=== PATIENT | female | born 1940 | race Caucasian/White ===

== ENCOUNTER 2018-04-14 11:56 | Observation (INO) | payer MEDICARE ==
[2018-04-14] MEDS ORDERED: HYDRALAZINE HCL INJ/PF 20 MG/1 ML SDV IV ONE (12:11)
--- NOTE | 2018-04-14 12:25 | ER Document Report ---
ED Medical Screen (RME) - General Chief Complaint: High Blood Pressure Stated Complaint: BLOOD PRESSURE ISSUES Time Seen by Provider: 04/14/18 12:10 Mode of Arrival: Ambulatory Information source: Patient Notes: 77 yr old female presents with complaints of headache and high blood preessure pt notes she is on 3 different bp meds that she did not take today because she had a coloscopy planned for today I have greeted and performed a rapid initial assessment of this patient. A comprehensive ED assessment and evaluation of the patient, analysis of test results and completion of the medical decision making process will be conducted by additional ED providers. PHYSICAL EXAMINATION: GENERAL: Well-appearing, well-nourished and in no acute distress. hypertensive HEAD: Atraumatic, normocephalic. EYES: Pupils equal round extraocular movements intact, conjunctiva are normal. ENT: Nares patent NECK: Normal range of motion LUNGS: No respiratory distress Musculoskeletal: Normal range of motion NEUROLOGICAL: Normal speech, normal gait. PSYCH: tearful SKIN: Warm, Dry, normal turgor, no rashes or lesions noted. TRAVEL OUTSIDE OF THE [place] IN LAST 30 DAYS: No - Related Data Allergies/Adverse Reactions: midazolam HCl [From Versed] Allergy (Unknown, Verified 04/14/18 09:20) hydrocodone [Hydrocodone] Allergy (Verified 04/14/18 09:20) Pruritis nitrofurantoin [From Macrobid] Allergy (Verified 04/14/18 09:20) Pruritis nitrofurantoin macrocrystalline [From Macrobid] Allergy (Verified 04/14/18 09:20 ) Pruritis Sulfa (Sulfonamide Antibiotics) Adverse Reaction (Verified 04/14/18 09:20) Anxiety tramadol Adverse Reaction (Verified 04/14/18 09:20) Past Medical History - Social History Chew tobacco use (# tins/day): No Frequency of alcohol use: None Drug Abuse: None - Past Medical History Cardiac Medical History: Reports: Hx Hypercholesterolemia, Hx Hypertension Denies: Hx Coronary Artery Disease, Hx Heart Attack Pulmonary Medical History: Denies: Hx Asthma, Hx Bronchitis, Hx COPD, Hx Pneumonia Neurological Medical History: Reports: Hx Cerebrovascular Accident - SHE DOES NOT REMEMBER IT, HAS BEEN TOLD SHE HAS HAD A CVA. Denies: Hx Seizures Renal/ Medical History: Denies: Hx Peritoneal Dialysis GI Medical History: Reports: Hx Gastroesophageal Reflux Disease. Denies: Hx Hepatitis, Hx Hiatal Hernia, Hx Ulcer Musculoskeltal Medical History: Reports Hx Arthritis - GENERALIZED Infectious Medical History: Denies: Hx Hepatitis Past Surgical History: Reports: Hx Adenoidectomy, Hx Hysterectomy, Hx Thyroid Surgery, Hx Tonsillectomy. Denies: Hx Mastectomy, Hx Open Heart Surgery, Hx Pacemaker - Immunizations Hx Diphtheria, Pertussis, Tetanus Vaccination: - UNSURE History of Influenza Vaccine for 07/2017 - 12/2017 Season: No Physical Exam - Vital signs Vitals: Temp Pulse Resp BP Pulse Ox 97.7 F 82 18 217/116 H 96 04/14/18 12:06 04/14/18 12:06 04/14/18 12:06 04/14/18 12:06 04/14/18 12:06 Course - Vital Signs Vital signs: Temp Pulse Resp BP Pulse Ox 97.7 F 82 18 210/140 H 96 04/14/18 12:06 04/14/18 12:06 04/14/18 12:06 04/14/18 12:11 04/14/18 12:06 Doctor's Discharge - Discharge Referrals: ADRIANO SAAVEDRA PA-C [Primary Care Provider] - Follow up as needed
--- NOTE | 2018-04-14 12:55 | RADIOLOGY REPORT (SQ) ---
EXAM DESCRIPTION: CT HEAD WITHOUT COMPLETED DATE/TIME: 04/14/2018 12:37 pm REASON FOR STUDY: headache COMPARISON: 02/05/2014. TECHNIQUE: Axial images acquired through the brain without intravenous contrast. Images reviewed wi th bone, brain and subdural windows. Images stored on PACS. All CT scanners at this facility use dose modulation, iterative reconstruction, and/or weight based d osing when appropriate to reduce radiation dose to as low as reasonably achievable (ALARA). [facility]: Dose Right [facility]: CareDose [facility]: Dose Right [facility]: Teradose 4D [facility]: Smart Revert RADIATION DOSE: CT Rad equipment meets quality standard of care and radiation dose reduction techniq ues were employed. CTDIvol: 53.2 mGy. DLP: 964 mGy-cm. mGy. LIMITATIONS: None. FINDINGS: VENTRICLES: Normal size and contour. CEREBRUM: There is evidence of decreased attenuation periventricular white matter consistent with chr onic white matter change. Focal rounded area decreased attenuation left basal ganglion region again noted consistent with old lacunar infarct. No intracranial hemorrhage. CEREBELLUM: No masses. No hemorrhage. No alteration of density. No evidence for acute infarction. EXTRAAXIAL SPACES: Age related involutional change. ORBITS AND GLOBE: No intra- or extraconal masses. Normal contour of globe without masses. CALVARIUM: Changes of hyperostosis frontalis interna. PARANASAL SINUSES: No fluid or mucosal thickening. SOFT TISSUES: No mass or hematoma. OTHER: No other significant finding. IMPRESSION: CHRONIC WHITE MATTER CHANGES. 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 OTHERWIS E, NO SIGNIFICANT ABNORMALITY SEEN. EVIDENCE OF ACUTE STROKE: NO. COMMENT: Quality ID # [id number]: Final reports with documentation of one or more dose reduction techniques (e.g., Automated exposure control, adjustment of the mA and/or kV according to patient size, use of iterative reconstruction technique) TECHNICAL DOCUMENTATION: JOB ID: [id number] [employer]- All Rights Reserved Reading location - IP/workstation name: [email or web address]
[2018-04-14 13:04] LABS: ABSOLUTE BASOPHILS # (AUTO) 0.1 10^3/uL (0.0-0.2); ABSOLUTE LYMPHOCYTES (AUTO) 1.7 10^3/uL (0.5-4.7); ABSOLUTE MONOCYTES (AUTO) 0.1 10^3/uL (0.1-1.4); ABSOLUTE NEUT (AUTO) 9.8 10^3/uL (1.7-8.2); BASOPHILS % (AUTO) 0.5 % (0-2); EOSINOPHILS % (AUTO) 0.2 % (0-6); HEMOGLOBIN 16.3 g/dL (12.0-15.5); LYMPHOCYTES % (AUTO) 14.8 % (13-45); MEAN CORPUSCULAR HEMOGLOBIN 28.8 pg (27.0-33.4); MEAN CORPUSCULAR HGB CONC 34.7 g/dL (32.0-36.0); MEAN CORPUSCULAR VOLUME 83 fl (80-97); MONOCYTES % (AUTO) 1.2 % (3-13); PLATELET COUNT 183 10^3/uL (150-450); RED BLOOD COUNT 5.67 10^6/uL (3.72-5.28); RED CELL DISTRIBUTION WIDTH 16.2 % (11.5-14.0); SEGMENTED NEUTROPHILS % (AUTO) 83.3 % (42-78); TOTAL CELLS COUNTED % (AUTO) 100 %; WHITE BLOOD COUNT 11.8 10^3/uL (4.0-10.5)
[2018-04-14] MEDS ORDERED: ALPRAZOLAM 0.5 MG TABLET PO ONE (13:12)
[2018-04-14 13:21] LABS: ALANINE AMINOTRANSFERASE 41 U/L (9-52); ALBUMIN 4.9 g/dL (3.5-5.0); ALKALINE PHOSPHATASE 111 U/L (38-126); ANION GAP 13 (5-19); ASPARTATE AMINO TRANSFERASE 43 U/L (14-36); BILIRUBIN,DIRECT 0.4 mg/dL (0.0-0.4); BILIRUBIN,TOTAL 1.3 mg/dL (0.2-1.3); BLOOD UREA NITROGEN 11 mg/dL (7-20); CALCIUM 10.2 mg/dL (8.4-10.2); CARBON DIOXIDE 23 mmol/L (22-30); CHLORIDE 108 mmol/L (98-107); GLUCOSE 150 mg/dL (75-110); POTASSIUM 3.9 mmol/L (3.6-5.0); SODIUM 144.4 mmol/L (137-145); TOTAL PROTEIN 8.4 g/dL (6.3-8.2)
[2018-04-14] MEDS ORDERED: PROCHLORPERAZINE EDISYLATE INJ 10 MG/2 ML VIAL IV ONE (13:58)
[2018-04-14] MEDS ORDERED: NORMAL SALINE 1000 ML 1,000 ML IV ONE (13:58)
[2018-04-14] MEDS ORDERED: HALOPERIDOL LACTATE INJ 5 MG/1 ML VIAL IV ONE (14:01)
[2018-04-14] MEDS ORDERED: DIPHENHYDRAMINE HCL 50 MG/ML VIAL IV ONE (14:01)
[2018-04-14] MEDS ORDERED: KETOROLAC TROMETHAMINE INJ/PF 30 MG/1 ML SDV IV ONE ×2 (15:10→19:00)
[2018-04-14 15:27] LABS: APPEARANCE,URINE CLEAR; BILIRUBIN,URINE NEGATIVE (NEGATIVE); COLOR,URINE YELLOW; GLUCOSE, URINE 50 mg/dL (NEGATIVE); KETONES,URINE TRACE mg/dL (NEGATIVE); LEUKOCYTE ESTERASE,URINE NEGATIVE (NEGATIVE); NITRITE,URINE NEGATIVE (NEGATIVE); PROTEIN,URINE 100 mg/dL (NEGATIVE); URINE SPECIFIC GRAVITY 1.009; UROBILINOGEN,URINE NEGATIVE mg/dL (<2.0)
--- NOTE | 2018-04-14 15:46 | EKG REPORT ---
SEVERITY:- ABNORMAL ECG - SINUS TACHYCARDIA PROBABLE LEFT ATRIAL ABNORMALITY INCOMPLETE LEFT BUNDLE BRANCH BLOCK LVH WITH SECONDARY REPOLARIZATION ABNORMALITY ANTERIOR Q WAVES, POSSIBLY DUE TO LVH : Confirmed by: Jeremy Uriarte 14-Apr-2018 15:46:05
[2018-04-14] MEDS ORDERED: METOPROLOL TARTRATE PF/INJ 5 MG/5 ML SDV IV ONE (17:05)
--- NOTE | 2018-04-14 17:09 | ER Document Report ---
ED Blood Pressure Problem - General Chief Complaint: High Blood Pressure Stated Complaint: BLOOD PRESSURE ISSUES Time Seen by Provider: 04/14/18 12:10 Mode of Arrival: Ambulatory Information source: Patient Notes: Patient is a 77-year-old female with a history of hypertension who presents to the ER today for elevated blood pressure, headache, nausea and vomiting after being at the [facility] to get a colonoscopy performed this morning. She had a headache there and a blood pressure of 217/115. Patient was nauseated there. They sent patient to the emergency department by ambulance. Patient did not take her losartan this morning because of the colonoscopy. Patient states she has been nauseated because of the colon prep and not being able to eat. Patient denies any chest pain, shortness of breath, abdominal pain or diarrhea. Patient denies any history of heart attack or stroke. Patient is anxious at this time and really unable to answer anymore questions. TRAVEL OUTSIDE OF THE [place] IN LAST 30 DAYS: No - Related Data Allergies/Adverse Reactions: midazolam HCl [From Versed] Allergy (Unknown, Verified 04/14/18 09:20) hydrocodone [Hydrocodone] Allergy (Verified 04/14/18 09:20) Pruritis nitrofurantoin [From Macrobid] Allergy (Verified 04/14/18 09:20) Pruritis nitrofurantoin macrocrystalline [From Macrobid] Allergy (Verified 04/14/18 09:20 ) Pruritis Sulfa (Sulfonamide Antibiotics) Adverse Reaction (Verified 04/14/18 09:20) Anxiety tramadol Adverse Reaction (Verified 04/14/18 09:20) Past Medical History - General Information source: Patient - Social History Smoking Status: Current Every Day Smoker Chew tobacco use (# tins/day): No Frequency of alcohol use: None Drug Abuse: None Family History: Reviewed & Not Pertinent Patient has suicidal ideation: No Patient has homicidal ideation: No - Past Medical History Cardiac Medical History: Reports: Hx Hypercholesterolemia, Hx Hypertension Denies: Hx Coronary Artery Disease, Hx Heart Attack Pulmonary Medical History: Denies: Hx Asthma, Hx Bronchitis, Hx COPD, Hx Pneumonia Neurological Medical History: Reports: Hx Cerebrovascular Accident - SHE DOES NOT REMEMBER IT, HAS BEEN TOLD SHE HAS HAD A CVA. 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 Denies: Hx Hepatitis, Hx Hiatal Hernia, Hx Ulcer Musculoskeltal Medical History: Reports Hx Arthritis - GENERALIZED Infectious Medical History: Denies: Hx Hepatitis Past Surgical History: Reports: Hx Adenoidectomy, Hx Cholecystectomy, Hx Hysterectomy, Hx Thyroid Surgery, Hx Tonsillectomy. Denies: Hx Mastectomy, Hx Open Heart Surgery, Hx Pacemaker - Immunizations Hx Diphtheria, Pertussis, Tetanus Vaccination: - UNSURE Hx Pneumococcal Vaccination: 10/24/16 Review of Systems - Review of Systems Constitutional: No symptoms reported EENT: No symptoms reported Cardiovascular: See HPI Respiratory: No symptoms reported Gastrointestinal: See HPI Genitourinary: No symptoms reported Female Genitourinary: No symptoms reported Musculoskeletal: No symptoms reported Skin: No symptoms reported Hematologic/Lymphatic: No symptoms reported Neurological/Psychological: See HPI Physical Exam - Vital signs Vitals: Temp Pulse Resp BP Pulse Ox 97.7 F 82 18 217/116 H 96 04/14/18 12:06 04/14/18 12:06 04/14/18 12:06 04/14/18 12:06 04/14/18 12:06 - Notes Notes: PHYSICAL EXAMINATION: GENERAL: Anxious, tearful, but in no acute distress. HEAD: Atraumatic, normocephalic. EYES: Pupils equal round and reactive to light, extraocular movements intact, sclera anicteric, conjunctiva are normal. ENT: Airway patent NECK: Normal range of motion, supple without lymphadenopathy LUNGS: CTAB and equal. No wheezes rales or rhonchi. HEART: Tachycardic with regular rhythm without murmurs ABDOMEN: Soft, no tenderness. No guarding, no rebound BACK: no vertebral tenderness, normal ROM GI/: no CVA tenderness EXTREMITIES: Normal range of motion, no pitting edema. No cyanosis. NEUROLOGICAL: Cranial nerves grossly intact. Normal sensory/motor exams. PSYCH: Anxious, tearful SKIN: Warm, Dry, normal turgor, no rashes or lesions noted Course - Re-evaluation Re-evalutation: 04/14/18 18:15 Patient is very anxious and tearful in the room with me, asking for her over and over again, unable to really have a conversation with me. One has been gets into the room I did ask if she had any history of anxiety to which he replies "no, not like this, she is usually pretty stable." Patient's blood pressure initially 217/115, did come down after 10 of IV hydralazine ordered in triage to 134/90 at one point, however patient's headache never subsided. CT of the head negative for any acute pathology, cardiac enzymes negative, EKG reveals no acute abnormality or evidence of ischemia. Chest x-ray negative. Other lab work unremarkable today. Patient's blood pressure at this time is still 214/107 and she is still complaining of a headache. This is after lopressor IV as well, haldol, benadryl, xanax. Dr. Del Rosario accepts admission at this time for hypertensive urgency. Wants 2mg of IV ativan stat. 04/14/18 18:38 - Vital Signs Vital signs: Temp Pulse Resp BP Pulse Ox 97.7 F 82 15 214/104 H 94 04/14/18 12:06 04/14/18 12:06 04/14/18 18:01 04/14/18 18:13 04/14/18 18:01 - Laboratory Result Diagrams: 04/14/18 12:40 04/14/18 12:10 Laboratory results interpreted by me: 04/14/18 04/14/18 04/14/18 12:10 12:40 15:00 WBC 11.8 H RBC 5.67 H Hgb 16.3 H RDW 16.2 H Seg Neutrophils % 83.3 H Monocytes % 1.2 L Absolute Neutrophils 9.8 H Chloride 108 H Glucose 150 H AST 43 H Total Protein 8.4 H Urine Protein 100 H Urine Glucose (UA) 50 H Urine Ketones TRACE H Discharge - Discharge Clinical Impression: Hypertensive urgency Condition: Stable Disposition: ADMITTED INPATIENT Admitting Provider: Nakulist Gloria del rosario Unit Admitted: Telemetry
--- NOTE | 2018-04-14 17:49 | RADIOLOGY REPORT (SQ) ---
EXAM DESCRIPTION: CHEST SINGLE VIEW COMPLETED DATE/TIME: 04/14/2018 5:28 pm REASON FOR STUDY: htn crisis COMPARISON: 12/04/2012. EXAM PARAMETERS: NUMBER OF VIEWS: One view. TECHNIQUE: Single frontal radiographic view of the chest acquired. RADIATION DOSE: NA LIMITATIONS: None. FINDINGS: LUNGS AND PLEURA: No opacities, masses or pneumothorax. No pleural effusion. MEDIASTINUM AND HILAR STRUCTURES: No masses. Contour normal. HEART AND VASCULAR STRUCTURES: Heart normal in size. Normal vasculature. BONES: No acute findings. HARDWARE: None in the chest. OTHER: No other significant finding. IMPRESSION: NO ACUTE RADIOGRAPHIC FINDING IN THE CHEST. TECHNICAL DOCUMENTATION: JOB ID: [id number] [employer]- All Rights Reserved Reading location - IP/workstation name: [email or web address]
[2018-04-14 17:53] LABS: CREATINE KINASE MB 0.7 ng/mL (<4.55); TROPONIN I 0.014 ng/mL
[2018-04-14] MEDS ORDERED: LORAZEPAM INJ 2 MG/1 ML VIAL IV ONE ×2 (18:15→22:15)
[2018-04-14] MEDS ORDERED: ONDANSETRON HCL INJ/PF 4 MG/2 ML SDV IV PRN (18:18)
--- NOTE | 2018-04-14 18:31 | PDOC H&P ---
History of Present Illness Admission Date/PCP: ADRIANO SAAVEDRA PA-C History of Present Illness: HOWARD ACUNA is a 77 year old female patient referred from her search engine optimization consultant office after she was found to have hypertensive urgency with blood pressure of 217/113. Patient is scheduled to have colonoscopy today after bowel prep and she has not taken her daily antihypertensive medications. At the ER she was given hydralazine but her blood pressure remains high and patient also complaining of nausea and severe headache. She denies fever, chills, palpitation or diaphoresis. No abdominal pain, diarrhea or urinary complaints. Her CT of the head is negative for acute intracranial process. Past Medical History Cardiac Medical History: Reports: Hyperlipidema, Hypertension Denies: Coronary Artery Disease, Myocardial Infarction Pulmonary Medical History: Denies: Asthma, Bronchitis, Chronic Obstructive Pulmonary Disease (COPD), Pneumonia Neurological Medical History: Denies: Seizures Endocrine Medical History: Reports: Diabetes Mellitus Type 2 - borderline GI Medical History: Reports: Gastroesophageal Reflux Disease Denies: Hepatitis, Hiatal Hernia Musculoskeltal Medical History: Reports: Arthritis - GENERALIZED Hematology: Reports: Anemia Denies: Sickle Cell Disease Past Surgical History Past Surgical History: Reports: Adenoidectomy, Cholecystectomy, Hysterectomy, Tonsillectomy Denies: Amputation, Mastectomy, Pacemaker Social History Smoking Status: Current Every Day Smoker - Advance Directive Resuscitation Status: Full Code Family History Family History: DM, Hypertension Parental Family History Reviewed: Yes Children Family History Reviewed: Yes Sibling(s) Family History Reviewed.: Yes Medication/Allergy Home Medications: Diclofenac Sodium 75 mg PO BID 06/26/13 Gabapentin [Neurontin 300 Mg Capsule] 300 mg PO BID 06/26/13 Levothyroxine Sodium [Synthroid] 137 mcg PO DAILY 06/26/13 Cholecalciferol (Vitamin D3) [Vitamin D3] 1 tab PO DAILY 04/13/18 Clonidine HCl 0.5 tab PO BID 04/13/18 Losartan Potassium 100 mg PO DAILY 04/14/18 Allergies/Adverse Reactions: midazolam HCl [From Versed] Allergy (Unknown, Verified 04/14/18 09:20) hydrocodone [Hydrocodone] Allergy (Verified 04/14/18 09:20) Pruritis nitrofurantoin [From Macrobid] Allergy (Verified 04/14/18 09:20) Pruritis nitrofurantoin macrocrystalline [From Macrobid] Allergy (Verified 04/14/18 09:20 ) Pruritis Sulfa (Sulfonamide Antibiotics) Adverse Reaction (Verified 04/14/18 09:20) Anxiety tramadol Adverse Reaction (Verified 04/14/18 09:20) Review of Systems Constitutional: PRESENT: as per HPI Eyes: PRESENT: as per HPI Breasts: PRESENT: as per HPI Cardiovascular: PRESENT: as per HPI Gastrointestinal: PRESENT: as per HPI Musculoskeletal: PRESENT: as per HPI Neurological: PRESENT: as per HPI Psychiatric: PRESENT: as per HPI Physical Exam Vital Signs: Temp Pulse Resp BP Pulse Ox 97.7 F 82 15 214/104 H 94 04/14/18 12:06 04/14/18 12:06 04/14/18 18:01 04/14/18 18:13 04/14/18 18:01 Intake & Output 04/13/18 04/14/18 04/15/18 06:59 06:59 06:59 Weight 72.1 kg General appearance: PRESENT: mild distress Head exam: PRESENT: atraumatic, normocephalic Eye exam: PRESENT: conjunctiva pink, EOMI, PERRLA. ABSENT: scleral icterus Neck exam: ABSENT: carotid bruit, JVD, lymphadenopathy, thyromegaly Respiratory exam: PRESENT: clear to auscultation oli. ABSENT: rales, rhonchi, wheezes Cardiovascular exam: PRESENT: RRR. ABSENT: diastolic murmur, rubs, systolic murmur GI/Abdominal exam: PRESENT: normal bowel sounds, soft. ABSENT: distended, guarding, mass, organolmegaly, rebound, tenderness Neurological exam: PRESENT: alert, awake, oriented to time, oriented to situation Psychiatric exam: PRESENT: depressed Results Laboratory Results: 04/14/18 12:40 04/14/18 12:10 04/14/18 04/14/18 04/14/18 12:10 12:40 15:00 WBC 11.8 H RBC 5.67 H Hgb 16.3 H Hct 47.0 MCV 83 MCH 28.8 MCHC 34.7 RDW 16.2 H Plt Count 183 Seg Neutrophils % 83.3 H Lymphocytes % 14.8 Monocytes % 1.2 L Eosinophils % 0.2 Basophils % 0.5 Absolute Neutrophils 9.8 H Absolute Lymphocytes 1.7 Absolute Monocytes 0.1 Absolute Eosinophils 0.0 Absolute Basophils 0.1 Sodium 144.4 Potassium 3.9 Chloride 108 H Carbon Dioxide 23 Anion Gap 13 BUN 11 Creatinine 0.81 Est GFR ( Amer) > 60 Est GFR (Non-Af Amer) > 60 Glucose 150 H Calcium 10.2 Total Bilirubin 1.3 AST 43 H ALT 41 Alkaline Phosphatase 111 Total Protein 8.4 H Albumin 4.9 Urine Color YELLOW Urine Appearance CLEAR Urine pH 8.0 Ur Specific [place] 1.009 Urine Protein 100 H Urine Glucose (UA) 50 H Urine Ketones TRACE H Urine Blood NEGATIVE Urine Nitrite NEGATIVE Ur Leukocyte Esterase NEGATIVE Urine WBC (Auto) 0 Urine RBC (Auto) 1 04/14/18 04/14/18 12:40 12:40 Creatine Kinase 42 CK-MB (CK-2) 0.70 Troponin I 0.014 Impressions: Head CT 04/14/18 12:10 IMPRESSION: CHRONIC WHITE MATTER CHANGES. 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 OTHERWISE, NO SIGNIFICANT ABNORMALITY SEEN. EVIDENCE OF ACUTE STROKE: NO. Chest X-Ray 04/14/18 17:07 IMPRESSION: NO ACUTE RADIOGRAPHIC FINDING IN THE CHEST. Assessment & Plan - Diagnosis (1) Hypertensive urgency Is this a current diagnosis for this admission?: Yes Plan: Patient has been started on metoprolol and Procardia. (2) Hyperlipidemia Qualifiers: Hyperlipidemia type: unspecified Qualified Code(s): E78.5 - Hyperlipidemia , unspecified Is this a current diagnosis for this admission?: Yes Plan: Continue her home medication (3) Diabetes mellitus Qualifiers: Diabetes mellitus type: type 2 Is this a current diagnosis for this admission?: Yes Plan: Patient has diet-controlled diabetes mellitus. Will put her on sliding scale. (4) Nonalcoholic steatohepatitis Is this a current diagnosis for this admission?: Yes Plan: Follow-up with her primary search engine optimization consultant.
[2018-04-14] MEDS ORDERED: NIFEDIPINE 30 MG TAB.ER.24 PO ONE (19:00)
[2018-04-14] MEDS ORDERED: METOPROLOL TARTRATE 100 MG TABLET PO ONE (19:00)
[2018-04-14] MEDS ORDERED: ENOXAPARIN SODIUM INJ 40 MG/0.4 ML DISP.SYRIN SUBCUT ONE (19:30)
[2018-04-14] MEDS ORDERED: MORPHINE SULFATE 10 MG/ML INJ IV ONE (22:06)
[2018-04-14] MEDS ORDERED: LORAZEPAM INJ 2 MG/1 ML VIAL ONE (22:07)
[2018-04-14] MEDS ORDERED: ARIPIPRAZOLE 5 MG TABLET PO ONE (22:08)
[2018-04-14] MEDS: METOPROLOL TARTRATE 50 MG TABLET PO SCH (23:16)
[2018-04-14] MEDS ORDERED: CLONIDINE HCL 0.1 MG TABLET PO ONE (23:45)
[2018-04-15] MEDS: NIFEDIPINE 30 MG TAB.ER.24 PO SCH ×2 (06:15→17:23)
[2018-04-15] MEDS: GABAPENTIN 300 MG CAPSULE PO SCH ×3 (06:15→21:51)
[2018-04-15] MEDS: LANSOPRAZOLE 30 MG TAB.RAP.DR PO SCH (06:16)
[2018-04-15 06:49] LABS: ANION GAP 12 (5-19); BLOOD UREA NITROGEN 18 mg/dL (7-20); CALCIUM 9.3 mg/dL (8.4-10.2); CARBON DIOXIDE 26 mmol/L (22-30); CHLORIDE 106 mmol/L (98-107); GLUCOSE 103 mg/dL (75-110); POTASSIUM 3.9 mmol/L (3.6-5.0)
[2018-04-15] MEDS ORDERED: CLONIDINE HCL 0.1 MG TABLET PO SCH (10:00)
[2018-04-15] MEDS: ENOXAPARIN SODIUM INJ 40 MG/0.4 ML DISP.SYRIN SUBCUT SCH (10:06)
[2018-04-15] MEDS: METOPROLOL TARTRATE 50 MG TABLET PO SCH (10:07)
--- NOTE | 2018-04-15 12:49 | PDOC PROGRESS REPORT ---
Subjective Progress Note for:: 04/15/18 Subjective:: This is a 77 years old female patient admitted yesterday for hypertensive urgency with diastolic of 217. Patient got IV hydralazine, p.o. metoprolol and Procardia. Last night patient had an episode of agitation for which she was given benzodiazepine and Haldol. This this afternoon when I examined her patient is somewhat sleepy she is arousable to painful and verbal stimuli but she falls back to sleep. Reason For Visit: HYPERTENSIVE URGENCY,HEADACHE Physical Exam Vital Signs: Temp Pulse Resp BP Pulse Ox 97.3 F 71 14 164/92 H 93 04/15/18 09:00 04/15/18 09:00 04/15/18 09:00 04/15/18 09:00 04/15/18 09:00 Intake & Output 04/14/18 04/15/18 04/16/18 06:59 06:59 06:59 Intake Total 300 Balance 300 Weight 72.2 kg General appearance: PRESENT: no acute distress, well-developed, well-nourished Neck exam: ABSENT: carotid bruit, JVD, lymphadenopathy, thyromegaly Respiratory exam: PRESENT: clear to auscultation oli. ABSENT: rales, rhonchi, wheezes Cardiovascular exam: PRESENT: RRR. ABSENT: diastolic murmur, rubs, systolic murmur GI/Abdominal exam: PRESENT: normal bowel sounds, soft. ABSENT: distended, guarding, mass, organolmegaly, rebound, tenderness Neurological exam: PRESENT: other - Lethargic because of the sedative and antipsychotic medications she was given Results Laboratory Results: 04/15/18 05:39 04/15/18 04/15/18 05:39 05:39 Sodium 144.0 Potassium 3.9 Chloride 106 Carbon Dioxide 26 Anion Gap 12 BUN 18 Creatinine 1.38 H Est GFR ( Amer) 45 L Est GFR (Non-Af Amer) 37 L Glucose 103 Calcium 9.3 TSH 5.86 H Impressions: Head CT 04/14/18 12:10 IMPRESSION: CHRONIC WHITE MATTER CHANGES. 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 OTHERWISE, NO SIGNIFICANT ABNORMALITY SEEN. EVIDENCE OF ACUTE STROKE: NO. Chest X-Ray 04/14/18 17:07 IMPRESSION: NO ACUTE RADIOGRAPHIC FINDING IN THE CHEST. Assessment & Plan - Diagnosis (1) Hypertensive urgency Is this a current diagnosis for this admission?: Yes Plan: I discontinued her clonidine which is a culprit for her rebound hypertension. (2) Hyperlipidemia Qualifiers: Hyperlipidemia type: unspecified Qualified Code(s): E78.5 - Hyperlipidemia , unspecified Is this a current diagnosis for this admission?: Yes Plan: Continue her home medication (3) Diabetes mellitus Qualifiers: Diabetes mellitus type: type 2 Is this a current diagnosis for this admission?: Yes Plan: Patient has diet-controlled diabetes mellitus. Will put her on sliding scale. (4) Nonalcoholic steatohepatitis Is this a current diagnosis for this admission?: Yes Plan: Follow-up with her primary human resources director. (5) Altered mental status Qualifiers: Altered mental status type: somnolence Qualified Code(s): R40.0 - Somnolence Is this a current diagnosis for this admission?: Yes Plan: I will cut back the sedatives that she has been given
[2018-04-15] MEDS ORDERED: NORMAL SALINE 1000 ML 1,000 ML IV ONE (13:00)
[2018-04-16 03:59] VITALS: BP 119/43
[2018-04-16] MEDS: LANSOPRAZOLE 30 MG TAB.RAP.DR PO SCH (05:59)
[2018-04-16] MEDS: GABAPENTIN 300 MG CAPSULE PO SCH (06:00)
[2018-04-16] MEDS: ENOXAPARIN SODIUM INJ 40 MG/0.4 ML DISP.SYRIN SUBCUT SCH (09:49)
--- NOTE | 2018-04-16 11:15 | PDOC DISCHARGE SUMMARY ---
General - Admit/Disc Date/PCP Admission Date/Primary Care Provider: 04/14/18 18:23 ADRIANO SAAVEDRA PA-C Discharge Date: 04/16/18 - Discharge Diagnosis (1) Hypertensive urgency Is this a current diagnosis for this admission?: Yes (2) Hyperlipidemia Is this a current diagnosis for this admission?: Yes (3) Diabetes mellitus Is this a current diagnosis for this admission?: Yes (4) Nonalcoholic steatohepatitis Is this a current diagnosis for this admission?: Yes (5) Altered mental status Is this a current diagnosis for this admission?: Yes - Additional Information Resuscitation Status: Full Code Discharge Diet: Diabetic Discharge Activity: Activity As Tolerated Prescriptions: Nifedipine [Procardia Xl 30 mg Tablet] 30 mg PO DAILY #30 tab.er.24 Trazodone HCl 100 mg PO QHS #30 tablet Home Medications: Diclofenac Sodium [Voltaren] 75 mg PO BIDP PRN 04/14/18 Gabapentin [Neurontin] 600 mg PO Q8 04/14/18 Levothyroxine Sodium [Synthroid 0.1 mg Tablet] 0.1 mg PO Q6AM 04/14/18 Losartan Potassium [Cozaar 100 mg Tablet] 100 mg PO DAILY 04/14/18 Metoprolol Tartrate [Lopressor 25 mg Tablet] 25 mg PO Q12 04/14/18 Nifedipine [Procardia Xl 30 mg Tablet] 30 mg PO DAILY #30 tab.er.24 04/16/18 Trazodone HCl 100 mg PO QHS #30 tablet 04/16/18 History of Present Illness History of Present Illness: HOWARD ACUNA is a 77 year old female 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 Patient is scheduled to have colonoscopy today after bowel prep and she has not taken her daily antihypertensive medications. At the ER she was given hydralazine but her blood pressure remains high and patient also complaining of nausea and severe headache. She denies fever, chills, palpitation or diaphoresis. No abdominal pain, diarrhea or urinary complaints. Her CT of the head is negative for acute intracranial process. Hospital Course Hospital Course: This 77-year-old female patient admitted with severe headache and hypertensive urgency. Patient missed some of her high blood pressure medications including clonidine which resulted in rebound hypertension. At admission her systolic blood pressure was 217. Patient has been managed with IV hydralazine and p.o. metoprolol and Procardia. The first night she admitted patient has an episode of confusion which has resolved. Her blood pressure also dropped to systolics of 80. She has been managed with a bolus of normal saline and we will hold all her antihypertensive medication. This morning when I examined the patient patient is awake alert oriented she is not in pain or any form of distress. Her blood pressure also improved with systolic of 151. Patient is going to be discharged today. I will continue all her home medication except the clonidine and added for her Procardia 30 mg p.o. daily. Physical Exam Vital Signs: Temp Pulse Resp BP Pulse Ox 98.8 F 60 15 119/43 L 93 04/16/18 10:42 04/16/18 10:42 04/16/18 10:42 04/16/18 10:42 04/16/18 10:42 Intake & Output 04/15/18 04/16/18 04/17/18 06:59 06:59 06:59 Intake Total 300 410 Balance 300 410 Weight 72.2 kg 76 kg General appearance: PRESENT: no acute distress, well-developed, well-nourished Head exam: PRESENT: atraumatic, normocephalic Eye exam: PRESENT: conjunctiva pink, EOMI, PERRLA. ABSENT: scleral icterus Ear exam: PRESENT: normal external ear exam Mouth exam: PRESENT: moist, tongue midline Neck exam: ABSENT: carotid bruit, JVD, lymphadenopathy, thyromegaly Respiratory exam: PRESENT: clear to auscultation oli. ABSENT: rales, rhonchi, wheezes Cardiovascular exam: PRESENT: RRR. ABSENT: diastolic murmur, rubs, systolic murmur Pulses: PRESENT: normal dorsalis pedis pul Vascular exam: PRESENT: normal capillary refill GI/Abdominal exam: PRESENT: normal bowel sounds, soft. ABSENT: distended, guarding, mass, organolmegaly, rebound, tenderness Rectal exam: PRESENT: deferred Extremities exam: PRESENT: full ROM. ABSENT: calf tenderness, clubbing, pedal edema Neurological exam: PRESENT: alert, awake, oriented to person, oriented to place , oriented to time, oriented to situation, CN II-XII grossly intact. ABSENT: motor sensory deficit Psychiatric exam: PRESENT: appropriate affect, normal mood. ABSENT: homicidal ideation, suicidal ideation Skin exam: PRESENT: dry, intact, warm. ABSENT: cyanosis, rash Results Laboratory Results: 04/15/18 05:39 Impressions: Head CT 04/14/18 12:10 IMPRESSION: CHRONIC WHITE MATTER CHANGES. 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 OTHERWISE, NO SIGNIFICANT ABNORMALITY SEEN. EVIDENCE OF ACUTE STROKE: NO. Chest X-Ray 04/14/18 17:07 IMPRESSION: NO ACUTE RADIOGRAPHIC FINDING IN THE CHEST. Qualifiers - * PATIENT BEING DISCHARGED WITH ANY OF THE FOLLOWING DIAGNOSIS: No
== END 2018-04-16 10:50 | disposition home or self-care (01) ==
LOC: ER 11:56 → INTOOBSV 18:23 → EH 18:23 → 4S 20:48
PROVIDERS: ADMIT Internal Medicine; ATTEND Internal Medicine
DX: I16.0 Hypertensive urgency (principal); E78.5 Hyperlipidemia, unspecified; E11.9 Type 2 diabetes mellitus without complications; K75.81 Nonalcoholic steatohepatitis (NASH); R40.0 Somnolence; R11.0 Nausea; R51 Headache; F17.200 Nicotine dependence, unspecified, uncomplicated; F32.9 Major depressive disorder, single episode, unspecified; R45.1 Restlessness and agitation; Z79.899 Other long term (current) drug therapy; Z90.49 Acquired absence of other specified parts of digestive tract; Z90.710 Acquired absence of both cervix and uterus; Z82.49 Family history of ischemic heart disease and other diseases of the circulatory system
CPT/HCPCS: 93005; 99285; 96361; 96374; 96375; 36415 ×2; 82553; 82550; 84443 ×2; 85025; 80048; 80053; 81001; 84484; 83036; 71045; 70450; 93010; G0378 ×4; A9270 ×12; J1200; J1630; J0360; J1885; J3490 ×4; J2270; J1650 ×3; J2060; J7030 ×2

== ENCOUNTER → 2018-04-14 | Day surgery (SDC) | payer MEDICARE ==
[~2018-04-14] MED LIST: DEXAMETHASONE SOD PHOSPHATE INJ 4 MG/1 ML VIAL ONE; ONDANSETRON 4 MG TAB.RAPDIS ONE
[2018-04-14 12:02] VITALS: BP 212/106
--- NOTE | 2018-04-14 12:18 | Progress Note ---
Provider Note Provider Note: patient was seen in the OR has elevated BP and not able to lower for procedure Anesthesia recommends rescheduling the procedure patient is at high risk of sedation will not be able to proceed today patient is informed, will reschedule for a different day
== END ==
LOC: OROUT 09:04
PROVIDERS: ATTEND Internal Medicine Gastroenterology
DX: I10 Essential (primary) hypertension (principal); Z53.8 Procedure and treatment not carried out for other reasons
CPT/HCPCS: 36415; 82962; 84132; J1100; A9270; S0119

== ENCOUNTER 2018-07-12 11:14 | Emergency (ER) | payer MEDICARE ==
--- NOTE | 2018-07-12 12:37 | ER Document Report ---
ED GI/ - General Chief Complaint: Urinary Frequency Stated Complaint: UTI SYMPTOMS Time Seen by Provider: 07/12/18 12:30 Notes: Chief complaint: Dysuria History of complain:( obtained from----patient) 77 years old female presents today with dysuria frequency and foul-smelling urine for the last 2-3 weeks. She has previous UTIs. Otherwise no fever chills currently. Denies any nausea vomiting. Mild lower abdominal discomfort. No diarrhea or constipation. Onset: As above Duration: Gradual Severity: Mild to moderate Quality: Burning Context: As above Exacerbating factor and relieving factors: REVIEW OF SYSTEMS: CONSTITUTIONAL : Denies fever, chills, or sweats. Denies recent illness. EENT: Denies eye, ear, throat, or mouth pain or symptoms. Denies nasal or sinus congestion or discharge. Denies throat, tongue, or mouth swelling or difficulty swallowing. CARDIOVASCULAR: Denies chest pain. Denies palpitations or racing or irregular heart beat. Denies ankle edema. RESPIRATORY: Denies cough, cold, or chest congestion. Denies shortness of breath, difficulty breathing, or wheezing. GASTROINTESTINAL: Denies distention. Denies nausea, vomiting, or diarrhea. Denies blood in vomitus, stools, or per rectum. Denies black, tarry stools. Denies constipation. GENITOURINARY: Denies difficulty urinating, painful urination, burning, frequency, blood in urine, or discharge. FEMALE GENITOURINARY: Denies vaginal bleeding, heavy or abnormal periods, irregular periods. Denies vaginal discharge or odor. MUSCULOSKELETAL: Denies back or neck pain or stiffness. Denies joint pain or swelling. SKIN: Denies rash, lesions or sores. HEMATOLOGIC : Denies easy bruising or bleeding. LYMPHATIC: Denies swollen, enlarged glands. NEUROLOGICAL: Denies confusion or altered mental status. Denies passing out or loss of consciousness. Denies dizziness or lightheadedness. Denies headache. Denies weakness or paralysis or loss of use of either side. Denies problems with gait or speech. Denies sensory loss, numbness, or tingling. Denies seizures. PSYCHIATRIC: Denies anxiety or stress. Denies depression, suicidal ideation, or homicidal ideation. ALL OTHER SYSTEMS REVIEWED AND NEGATIVE. PHYSICAL EXAMINATION: GENERAL: Well-appearing, well-nourished and in no acute distress. Obese HEAD: Atraumatic, normocephalic. EYES: Pupils equal round and reactive to light, extraocular movements intact, conjunctiva are normal. ENT: Nares patent, oropharynx clear without exudates. Moist mucous membranes. NECK: Normal range of motion, supple without lymphadenopathy LUNGS: Breath sounds clear to auscultation bilaterally and equal. No wheezes rales or rhonchi. HEART: Regular rate and rhythm without murmurs ABDOMEN: Soft, nontender, nondistended abdomen. No guarding, no rebound. No masses appreciated. Examination of genitals-deferred Musculoskeletal: Normal range of motion, no pitting or edema. No cyanosis. NEUROLOGICAL: Cranial nerves grossly intact. Normal speech, normal gait. Normal sensory, motor exams PSYCH: Normal mood, normal affect. SKIN: Warm, Dry, normal turgor, no rashes or lesions noted. Dictation was performed using [employer] voice recognition software TRAVEL OUTSIDE OF THE [place] IN LAST 30 DAYS: No - Related Data Allergies/Adverse Reactions: midazolam HCl [From Versed] Allergy (Unknown, Verified 04/14/18 09:20) hydrocodone [Hydrocodone] Allergy (Verified 04/14/18 09:20) Pruritis nitrofurantoin [From Macrobid] Allergy (Verified 04/14/18 09:20) Pruritis nitrofurantoin macrocrystalline [From Macrobid] Allergy (Verified 04/14/18 09:20 ) Pruritis Sulfa (Sulfonamide Antibiotics) Adverse Reaction (Verified 04/14/18 09:20) Anxiety tramadol Adverse Reaction (Verified 04/14/18 09:20) Past Medical History - Social History Smoking Status: Current Some Day Smoker Chew tobacco use (# tins/day): No Frequency of alcohol use: None Drug Abuse: None Lives with: Family Family History: Reviewed & Not Pertinent Patient has suicidal ideation: No Patient has homicidal ideation: No - Past Medical History Cardiac Medical History: Reports: Hx Hypercholesterolemia, Hx Hypertension Denies: Hx Coronary Artery Disease, Hx Heart Attack Pulmonary Medical History: Denies: Hx Asthma, Hx Bronchitis, Hx COPD, Hx Pneumonia Neurological Medical History: Reports: Hx Cerebrovascular Accident - SHE DOES NOT REMEMBER IT, HAS BEEN TOLD SHE HAS HAD A CVA. 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 Denies: Hx Hepatitis, Hx Hiatal Hernia, Hx Ulcer Musculoskeletal Medical History: Reports Hx Arthritis - GENERALIZED Infectious Medical History: Denies: Hx Hepatitis Past Surgical History: Reports: Hx Adenoidectomy, Hx Cholecystectomy, Hx Hysterectomy, Hx Thyroid Surgery, Hx Tonsillectomy. Denies: Hx Mastectomy, Hx Open Heart Surgery, Hx Pacemaker - Immunizations Hx Diphtheria, Pertussis, Tetanus Vaccination: - UNSURE Hx Pneumococcal Vaccination: 10/24/16 Review of Systems - Review of Systems Notes: Dictated Physical Exam - Vital signs Vitals: Temp Pulse Resp BP Pulse Ox 98.3 F 84 14 183/86 H 96 07/12/18 11:21 07/12/18 11:21 07/12/18 11:21 07/12/18 11:21 07/12/18 11:21 - Notes Notes: Dictated Course - Vital Signs Vital signs: Temp Pulse Resp BP Pulse Ox 98.3 F 84 14 183/86 H 96 07/12/18 11:21 07/12/18 11:21 07/12/18 11:21 07/12/18 11:21 07/12/18 11:21 - Laboratory Laboratory results interpreted by me: 07/12/18 12:55 Urine Protein 30 H Urine Nitrite POSITIVE H Urine Bilirubin SMALL H Urine Urobilinogen 4.0 H Ur Leukocyte Esterase SMALL H Discharge - Discharge Clinical Impression: UTI (urinary tract infection) Qualifiers: Urinary tract infection type: acute cystitis Hematuria presence: without hematuria Qualified Code(s): N30.00 - Acute cystitis without hematuria Condition: Fair Disposition: HOME, SELF-CARE Instructions: Urinary Tract Infection ([facility]) Prescriptions: Ciprofloxacin HCl [Cipro 500 mg Tablet] 500 mg PO BID #20 tablet Levofloxacin [Levaquin 500 mg Tablet] 500 mg PO DAILY #10 tablet Referrals: ADRIANO SAAVEDRA PA-C [Primary Care Provider] - Follow up as needed
[2018-07-12 13:13] LABS: APPEARANCE,URINE CLOUDY; BILIRUBIN,URINE SMALL (NEGATIVE); COLOR,URINE YELLOW; GLUCOSE, URINE NEGATIVE (NEGATIVE); KETONES,URINE NEGATIVE (NEGATIVE); LEUKOCYTE ESTERASE,URINE SMALL (NEGATIVE); NITRITE,URINE POSITIVE (NEGATIVE); PROTEIN,URINE 30 mg/dL (NEGATIVE); URINE SPECIFIC GRAVITY 1.019
[2018-07-12] MEDS ORDERED: CIPROFLOXACIN HCL 500 MG TABLET PO ONE (13:58)
[2018-07-12] MEDS ORDERED: CLONIDINE HCL 0.2 MG TABLET PO ONE (14:20)
[2018-07-12 15:33] VITALS: BP 155/87
== END 2018-07-12 15:33 | disposition home or self-care (01) ==
LOC: ER 11:14
DX: N30.00 Acute cystitis without hematuria (principal); R30.0 Dysuria; F17.210 Nicotine dependence, cigarettes, uncomplicated
CPT/HCPCS: 99283; 81001; A9270 ×2

== ENCOUNTER → 2019-01-23 | Outpatient (CLI) | payer MEDICARE ==
--- NOTE | 2019-01-23 12:36 | RADIOLOGY REPORT (SQ) ---
EXAM DESCRIPTION: CHEST PA/LATERAL COMPLETED DATE/TIME: 01/23/2019 11:45 am REASON FOR STUDY: SHORTNESS OF BREATH COMPARISON: 12/04/2012 EXAM PARAMETERS: NUMBER OF VIEWS: two views TECHNIQUE: Digital Frontal and Lateral radiographic views of the chest acquired. RADIATION DOSE: NA LIMITATIONS: none FINDINGS: LUNGS AND PLEURA: Chronic mild prominence of the interstitial markings in the lungs. No acute pulmonary consolidation. No pneumothorax or pleural effusion. MEDIASTINUM AND HILAR STRUCTURES: No masses or contour abnormalities. HEART AND VASCULAR STRUCTURES: Cardiomegaly, new finding. No evidence for failure. BONES: No acute findings. HARDWARE: None in the chest. OTHER: No other significant finding. IMPRESSION: 1. No acute pulmonary findings. 2. Cardiomegaly, new finding since the prior examination dated 12/04/2012. No evidence for failure. C orrelation suggested. TECHNICAL DOCUMENTATION: JOB ID: [id number] [employer]- All Rights Reserved Reading location - IP/workstation name: [email or web address]
== END ==
LOC: OD 11:25
PROVIDERS: ATTEND Physician Assistant Medical
DX: I51.7 Cardiomegaly (principal); R06.02 Shortness of breath
CPT/HCPCS: 71046

== ENCOUNTER 2019-06-24 14:04 | Emergency (ER) | payer MEDICARE ==
[2019-06-24] MEDS ORDERED: ONDANSETRON HCL INJ/PF 4 MG/2 ML SDV IV ONE (15:22)
[2019-06-24] MEDS ORDERED: NORMAL SALINE 1000 ML 1,000 ML IV ONE (15:22)
--- NOTE | 2019-06-24 15:24 | ER Document Report ---
ED Medical Screen (RME) - General Chief Complaint: Abdominal Pain Stated Complaint: ABDOMINAL PAIN Time Seen by Provider: 06/24/19 15:16 Primary Care Provider: ADRIANO SAAVEDRA PA-C [Primary Care Provider] - Follow up as needed TRAVEL OUTSIDE OF THE [place] IN LAST 30 DAYS: No - HPI Notes: 06/24/19 15:22 Patient is a 78-year-old female with a history of hypertension (see no med ications today), hyperlipidemia, COPD, borderline type 2 diabetes who presents complaining of mid to upper abdominal discomfort as well as an intermittent sharp pain to her right lower abdomen. She has had a history of cholecystectomy. Pain began 2 days ago. She has associated nausea and watery diarrhea without melena or hematochezia. Denies ARRIAGA, fever, neck pain, URI, CP, SOB, dysuria, back pain, or rash. I have treated and performed a rapid initial assessment of this patient. A comprehensive ED assessment and evaluation of the patient, analysis of test results and completion of medical decision making process will be conducted by additional ED providers. PHYSICAL EXAMINATION: GENERAL: Well-appearing, well-nourished and in no acute distress. A&Ox4. Answers questions appropriately. LUNGS: Breath sounds clear to auscultation bilaterally and equal. No wheezes rales or rhonchi. HEART: Regular rate and rhythm ABDOMEN: Soft, nondistended abdomen. No guarding, no rebound. Normal bowel sounds present. No CVA tenderness bilaterally. + mild mid/upper and rlq abd tenderness (cannot elicit thorough abd exam w/o bed, however). - Related Data Allergies/Adverse Reactions: midazolam HCl [From Versed] Allergy (Unknown, Verified 06/24/19 14:05) hydrocodone [Hydrocodone] Allergy (Verified 06/24/19 14:05) Pruritis nitrofurantoin [From Macrobid] Allergy (Verified 06/24/19 14:05) Pruritis nitrofurantoin macrocrystalline [From Macrobid] Allergy (Verified 06/24/19 14:05) Pruritis Sulfa (Sulfonamide Antibiotics) Adverse Reaction (Verified 06/24/19 14:05) Anxiety tramadol Adverse Reaction (Verified 06/24/19 14:05) Past Medical History - Past Medical History Cardiac Medical History: Reports: Hx Hypercholesterolemia, Hx Hypertension Denies: Hx Coronary Artery Disease, Hx Heart Attack Pulmonary Medical History: Denies: Hx Asthma, Hx Bronchitis, Hx COPD, Hx Pneumonia Neurological Medical History: Reports: Hx Cerebrovascular Accident - SHE DOES NOT REMEMBER IT, HAS BEEN TOLD SHE HAS HAD A CVA. 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 Denies: Hx Hepatitis, Hx Hiatal Hernia, Hx Ulcer Musculoskeltal Medical History: Reports Hx Arthritis - GENERALIZED Infectious Medical History: Denies: Hx Hepatitis Past Surgical History: Reports: Hx Adenoidectomy, Hx Cholecystectomy, Hx Hysterectomy, Hx Thyroid Surgery, Hx Tonsillectomy. Denies: Hx Mastectomy, Hx Open Heart Surgery, Hx Pacemaker - Immunizations Hx Diphtheria, Pertussis, Tetanus Vaccination: - UNSURE History of Influenza Vaccine for 07/2017 - 12/2017 Season: No Physical Exam - Vital signs Vitals: Temp Pulse Resp BP Pulse Ox 98.3 F 81 18 156/106 H 97 06/24/19 14:25 06/24/19 14:25 06/24/19 14:25 06/24/19 14:25 06/24/19 14:25 Course - Vital Signs Vital signs: Temp Pulse Resp BP Pulse Ox 98.3 F 81 18 156/106 H 97 06/24/19 14:25 06/24/19 14:25 06/24/19 14:25 06/24/19 14:25 06/24/19 14:25 Doctor's Discharge - Discharge Referrals: ADRIANO SAAVEDRA PA-C [Primary Care Provider] - Follow up as needed
[2019-06-24 16:09] LABS: ABSOLUTE EOSINOPHILS # (AUTO) 0.1 10^3/uL (0.0-0.6); ABSOLUTE LYMPHOCYTES (AUTO) 2.6 10^3/uL (0.5-4.7); ABSOLUTE MONOCYTES (AUTO) 0.7 10^3/uL (0.1-1.4); ABSOLUTE NEUT (AUTO) 6.7 10^3/uL (1.7-8.2); BASOPHILS % (AUTO) 0.5 % (0-2); EOSINOPHILS % (AUTO) 1.4 % (0-6); HEMATOCRIT 48.1 % (36.0-47.0); HEMOGLOBIN 16.6 g/dL (12.0-15.5); LYMPHOCYTES % (AUTO) 25.3 % (13-45); MEAN CORPUSCULAR HEMOGLOBIN 28.6 pg (27.0-33.4); MEAN CORPUSCULAR HGB CONC 34.6 g/dL (32.0-36.0); MEAN CORPUSCULAR VOLUME 83 fl (80-97); MONOCYTES % (AUTO) 6.9 % (3-13); PLATELET COUNT 179 10^3/uL (150-450); RED BLOOD COUNT 5.82 10^6/uL (3.72-5.28); RED CELL DISTRIBUTION WIDTH 16.5 % (11.5-14.0); SEGMENTED NEUTROPHILS % (AUTO) 65.9 % (42-78); TOTAL CELLS COUNTED % (AUTO) 100 %; WHITE BLOOD COUNT 10.2 10^3/uL (4.0-10.5)
[2019-06-24 16:26] LABS: ALBUMIN 5.1 g/dL (3.5-5.0); ALKALINE PHOSPHATASE 126 U/L (38-126); ANION GAP 14 (5-19); ASPARTATE AMINO TRANSFERASE 44 U/L (14-36); BILIRUBIN,DIRECT 0.5 mg/dL (0.0-0.4); BILIRUBIN,TOTAL 1.7 mg/dL (0.2-1.3); BLOOD UREA NITROGEN 17 mg/dL (7-20); CALCIUM 10.5 mg/dL (8.4-10.2); CARBON DIOXIDE 30 mmol/L (22-30); CHLORIDE 99 mmol/L (98-107); GLUCOSE 104 mg/dL (75-110); POTASSIUM 3.4 mmol/L (3.6-5.0); TOTAL PROTEIN 8.5 g/dL (6.3-8.2)
--- NOTE | 2019-06-24 17:25 | RADIOLOGY REPORT (SQ) ---
EXAM DESCRIPTION: CT ABD/PELVIS WITH IV ONLY COMPLETED DATE/TIME: 06/24/2019 5:11 pm REASON FOR STUDY: abd pain, n/d COMPARISON: None. TECHNIQUE: CT scan of the abdomen and pelvis performed using helical scanning technique with dynamic intravenous contrast injection. No oral contrast. Images reviewed with lung, soft tissue, and bone w indows. Reconstructed coronal and sagittal MPR images reviewed. Delayed images for evaluation of the urinary system also acquired. All images stored on PACS. All CT scanners at this facility use dose modulation, iterative reconstruction, and/or weight based d osing when appropriate to reduce radiation dose to as low as reasonably achievable (ALARA). [facility]: Dose Right [facility]: CareDose [facility]: Dose Right [facility]: Teradose 4D [facility]: TokBox CONTRAST TYPE AND DOSE: contrast/concentration: Isovue mg/ml; Total Contrast Delivered: 83.0 ml; To daya Saline Delivered: 69.0 ml RENAL FUNCTION: GFR > 60. RADIATION DOSE: CT Rad equipment meets quality standard of care and radiation dose reduction techniq ues were employed. CTDIvol: NaN - NaN mGy. DLP: 0 mGy-cm.. LIMITATIONS: None. FINDINGS: LOWER CHEST: No significant findings. LIVER: Normal size. Nodular contour of the liver. No enhancing masses. No dilated ducts. SPLEEN: Normal size. No focal lesions. PANCREAS: No masses identified. No significant calcifications. No adjacent inflammation or peripancre atic fluid collections. Pancreatic duct not dilated. GALLBLADDER: Surgically absent. ADRENAL GLANDS: No significant masses. RIGHT KIDNEY AND URETER: No cysts identified. No solid masses identified. No calcified stones. No hyd ronephrosis or hydroureter. LEFT KIDNEY AND URETER: Small cysts identified. No solid masses identified. No calcified stones. No h ydronephrosis or hydroureter. AORTA AND VESSELS: No aneurysm. No dissection. Renal arteries, SMA, celiac without significant stenos is. RETROPERITONEUM: No bulky retroperitoneal adenopathy. BOWEL AND PERITONEAL CAVITY: No obstruction or inflammatory changes. . Diverticulosis. Multiple carranza rgical changes in the right mid abdomen No free fluid. APPENDIX: Normal. PELVIS: Prior hysterectomy. No free fluid. Unremarkable bladder. ABDOMINAL WALL: No masses. No hernias. BONES: No acute findings. OTHER: No other significant finding. IMPRESSION: NO ACUTE FINDINGS IN THE ABDOMEN OR PELVIS ON CT SCAN WITH IV CONTRAST. TECHNICAL DOCUMENTATION: JOB ID: [id number] Quality ID # [id number]: Final reports with documentation of one or more dose reduction techniques (e.g., Au tomated exposure control, adjustment of the mA and/or kV according to patient size, use of iterative reconstruction technique) 2010 [employer]- All Rights Reserved Reading location - IP/workstation name: [email or web address]
[2019-06-24 17:58] LABS: APPEARANCE,URINE SLIGHTLY-CLOUDY; BILIRUBIN,URINE NEGATIVE (NEGATIVE); COLOR,URINE YELLOW; GLUCOSE, URINE NEGATIVE (NEGATIVE); KETONES,URINE TRACE mg/dL (NEGATIVE); LEUKOCYTE ESTERASE,URINE LARGE (NEGATIVE); NITRITE,URINE NEGATIVE (NEGATIVE); PROTEIN,URINE 30 mg/dL (NEGATIVE); URINE SPECIFIC GRAVITY 1.038; UROBILINOGEN,URINE NEGATIVE mg/dL (<2.0)
[2019-06-24] MEDS ORDERED: CEFTRIAXONE 1 GM/D5W RTU 1 GM/50 ML RTUPB IV ONE (18:27)
[2019-06-24] MEDS ORDERED: ONDANSETRON ODT 4 MG TAB (6 TAB/ER DISP) PO PRN (19:08)
--- NOTE | 2019-06-24 19:08 | ER Document Report ---
ED General - General Chief Complaint: Abdominal Pain Stated Complaint: ABDOMINAL PAIN Time Seen by Provider: 06/24/19 15:16 Primary Care Provider: ADRIANO SAAVEDRA PA-C [Primary Care Provider] - Follow up as needed TRAVEL OUTSIDE OF THE [place] IN LAST 30 DAYS: No - HPI Notes: Patient is a 78-year-old female who presents to the emergency department for evaluation. She has a chronic sharp right lower quadrant pain, but over the last 24 hours it is become unbearable. She states she is felt chilled. No isrrael fevers. She is had some nausea and diminished appetite but no emesis. She had a few episodes of diarrhea, but she believes that was likely yesterday. She denies any urinary symptoms at this time. She just feels weak and poorly all over. She is taking her regular medications without difficulty. - Related Data Allergies/Adverse Reactions: midazolam HCl [From Versed] Allergy (Unknown, Verified 06/24/19 14:05) hydrocodone [Hydrocodone] Allergy (Verified 06/24/19 14:05) Pruritis nitrofurantoin [From Macrobid] Allergy (Verified 06/24/19 14:05) Pruritis nitrofurantoin macrocrystalline [From Macrobid] Allergy (Verified 06/24/19 14:05) Pruritis Sulfa (Sulfonamide Antibiotics) Adverse Reaction (Verified 06/24/19 14:05) Anxiety tramadol Adverse Reaction (Verified 06/24/19 14:05) Past Medical History - General Information source: Patient - Social History Smoking Status: Former Smoker Chew tobacco use (# tins/day): No Frequency of alcohol use: Rare Drug Abuse: None Family History: Reviewed & Not Pertinent Patient has suicidal ideation: No Patient has homicidal ideation: No - Past Medical History Cardiac Medical History: Reports: Hx Hypercholesterolemia, Hx Hypertension Denies: Hx Coronary Artery Disease, Hx Heart Attack Pulmonary Medical History: Denies: Hx Asthma, Hx Bronchitis, Hx COPD, Hx Pneumonia Neurological Medical History: Reports: Hx Cerebrovascular Accident - SHE DOES NOT REMEMBER IT, HAS BEEN TOLD SHE HAS HAD A CVA. 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 Denies: Hx Hepatitis, Hx Hiatal Hernia, Hx Ulcer Musculoskeletal Medical History: Reports Hx Arthritis - GENERALIZED Infectious Medical History: Denies: Hx Hepatitis Past Surgical History: Reports: Hx Adenoidectomy, Hx Cholecystectomy, Hx Hysterectomy, Hx Thyroid Surgery, Hx Tonsillectomy. Denies: Hx Mastectomy, Hx Open Heart Surgery, Hx Pacemaker - Immunizations Hx Diphtheria, Pertussis, Tetanus Vaccination: - UNSURE Hx Pneumococcal Vaccination: 10/24/16 Review of Systems - Review of Systems Constitutional: See HPI EENT: No symptoms reported Cardiovascular: No symptoms reported Respiratory: No symptoms reported Gastrointestinal: See HPI Genitourinary: No symptoms reported Musculoskeletal: No symptoms reported Skin: No symptoms reported Neurological/Psychological: No symptoms reported Physical Exam - Vital signs Vitals: Temp Pulse Resp BP Pulse Ox 98.3 F 81 18 156/106 H 97 06/24/19 14:25 06/24/19 14:25 06/24/19 14:25 06/24/19 14:25 06/24/19 14:25 - Notes Notes: Vital signs reviewed, please refer to chart. Head is normocephalic, atraumatic. Pupils equal round, reactive to light. Neck is supple without meningismus. Heart is regular rate and rhythm. Lungs are clear to auscultation bilaterally. Abdomen is soft, minimally tender in the right lower quadrant, normoactive bowel sounds throughout. Extremities without cyanosis, clubbing. Posterior calves are nontender. Peripheral pulses are equal. Skin is warm and dry. Patient is awake, alert, neurological exam is nonfocal. Course - Re-evaluation Re-evalutation: 06/24/19 19:07 Patient presents emergency department for evaluation. Laboratory investigations and imaging are ordered as through triage. She is given IV fluids and Zofran. She is feeling significantly improved. Laboratory investigations revealed only a UTI. She does not have a significant leukocytosis. Her CT scan is unremarkable. Serial abdominal exams are minimally tender. Patient is given an IV dose of Rocephin given her age and other comorbidities. I will send her home with some oral Zofran. I will send her home with a prescription for Keflex. She is to follow-up with her primary care physician this week. Return to the ED with worsening or new concerning symptoms of any sort. - Vital Signs Vital signs: Temp Pulse Resp BP Pulse Ox 98.3 F 81 22 H 156/106 H 99 06/24/19 14:25 06/24/19 14:25 06/24/19 18:00 06/24/19 14:25 06/24/19 18:00 - Laboratory Result Diagrams: 06/24/19 15:40 06/24/19 15:40 Laboratory results interpreted by me: 06/24/19 06/24/19 06/24/19 15:40 15:40 17:33 RBC 5.82 H Hgb 16.6 H Hct 48.1 H RDW 16.5 H Potassium 3.4 L Est GFR ( Amer) 57 L Est GFR (MDRD) Non-Af 47 L Calcium 10.5 H Total Bilirubin 1.7 H Direct Bilirubin 0.5 H AST 44 H Total Protein 8.5 H Albumin 5.1 H Urine Protein 30 H Urine Ketones TRACE H Urine Blood SMALL H Ur Leukocyte Esterase LARGE H - Diagnostic Test Radiology reviewed: Reports reviewed Radiology results interpreted by me: 06/24/19 19:08 Abdomen/Pelvis CT 06/24/19 15:21 IMPRESSION: NO ACUTE FINDINGS IN THE ABDOMEN OR PELVIS ON CT SCAN WITH IV CONTRAST. Discharge - Discharge Clinical Impression: Urinary tract infection Condition: Stable Disposition: HOME, SELF-CARE Instructions: Abdominal Pain ([facility]), Urinary Tract Infection ([facility]) Additional Instructions: Rest. Stay well-hydrated. Take Zofran as needed for nausea. Start antibiotic tomorrow, take all of it until it is gone. Follow-up with your primary care physician this week and have urine rechecked. Return to the emergency depa rtment with worsening or new concerning symptoms of any sort. Referrals: ADRIANO SAAVEDRA PA-C [Primary Care Provider] - Follow up as needed
[2019-06-24 20:09] VITALS: BP 160/94
== END 2019-06-24 20:00 | disposition home or self-care (01) ==
LOC: ER 14:04
DX: N39.0 Urinary tract infection, site not specified (principal); R10.31 Right lower quadrant pain; G89.29 Other chronic pain; R68.83 Chills (without fever); R10.813 Right lower quadrant abdominal tenderness; R11.0 Nausea; R63.0 Anorexia; R19.7 Diarrhea, unspecified; R53.1 Weakness; I10 Essential (primary) hypertension; Z88.8 Allergy status to other drugs, medicaments and biological substances; Z88.5 Allergy status to narcotic agent; Z88.1 Allergy status to other antibiotic agents; Z87.891 Personal history of nicotine dependence
CPT/HCPCS: 99284; 96361; 96374; 36415; 87086; 82962; 83690; 85025; 80053; 81001; 74177; J2405; J7030; J0696; A9270

== ENCOUNTER 2019-10-06 00:51 | Inpatient (IN) | payer MEDICARE ==
[2019-10-06] MEDS ORDERED: ONDANSETRON HCL INJ/PF 4 MG/2 ML SDV IV ONE (02:40)
[2019-10-06] MEDS ORDERED: NORMAL SALINE 1000 ML 1,000 ML IV ONE ×3 (02:41→03:32)
--- NOTE | 2019-10-06 02:50 | ER Document Report ---
ED General - General Chief Complaint: Altered Mental Status Stated Complaint: AMS Time Seen by Provider: 10/06/19 02:27 Primary Care Provider: ADRIANO SAAVEDRA PA-C [Primary Care Provider] - Follow up as needed Notes: 78-year-old female presents with altered mental status, nausea/vomiting/diarrhea, dysuria, and subjective fever. Patient states that nausea/vomiting/diarrhea started yesterday and dysuria started a few days prior. Patient also states she had a little bit of hematuria. Patient states she does have a history of UTIs. Per EMS report, family reports that patient was altered and confused upon awakening today. Patient states she does not remember this. Patient states her stomach felt "sick" however denies any abdominal pain. Patient denies chest pain or dyspnea. TRAVEL OUTSIDE OF THE [place] IN LAST 30 DAYS: No - Related Data Allergies/Adverse Reactions: midazolam HCl [From Versed] Allergy (Unknown, Verified 06/24/19 14:05) hydrocodone [Hydrocodone] Allergy (Verified 06/24/19 14:05) Pruritis nitrofurantoin [From Macrobid] Allergy (Verified 06/24/19 14:05) Pruritis nitrofurantoin macrocrystalline [From Macrobid] Allergy (Verified 06/24/19 14:05) Pruritis Sulfa (Sulfonamide Antibiotics) Adverse Reaction (Verified 06/24/19 14:05) Anxiety tramadol Adverse Reaction (Verified 06/24/19 14:05) Home Medications: trazodone. losartan. amlodipine. xarelto. metoprolol. nexium. diclofenac Past Medical History - Social History Smoking Status: Unknown if Ever Smoked Family History: Reviewed & Not Pertinent Patient has suicidal ideation: No Patient has homicidal ideation: No - Past Medical History Cardiac Medical History: Reports: Hx Hypercholesterolemia, Hx Hypertension Denies: Hx Coronary Artery Disease, Hx Heart Attack Pulmonary Medical History: Denies: Hx Asthma, Hx Bronchitis, Hx COPD, Hx Pneumonia Neurological Medical History: Reports: Hx Cerebrovascular Accident - SHE DOES NOT REMEMBER IT, HAS BEEN TOLD SHE HAS HAD A CVA. 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 Denies: Hx Hepatitis, Hx Hiatal Hernia, Hx Ulcer Musculoskeletal Medical History: Reports Hx Arthritis - GENERALIZED Infectious Medical History: Denies: Hx Hepatitis Past Surgical History: Reports: Hx Adenoidectomy, Hx Cholecystectomy, Hx Hyster ectomy, Hx Thyroid Surgery, Hx Tonsillectomy. Denies: Hx Mastectomy, Hx Open Heart Surgery, Hx Pacemaker - Immunizations Hx Diphtheria, Pertussis, Tetanus Vaccination: - UNSURE Hx Pneumococcal Vaccination: 10/24/16 Review of Systems - Review of Systems Notes: Constitutional: Positive for subjective fever. HENT: Negative for sore throat. Eyes: Negative for visual changes. Cardiovascular: Negative for chest pain. Respiratory: Negative for shortness of breath. Gastrointestinal: Positive for nausea/vomiting/diarrhea. Negative for abdominal pain. Genitourinary: Positive for dysuria. Musculoskeletal: Negative for back pain. Skin: Negative for rash. Neurological: Negative for headaches, weakness or numbness. 10 point ROS negative except as marked above and in HPI. Physical Exam - Vital signs Vitals: Temp Pulse Resp BP Pulse Ox 99.5 F 95 24 H 125/72 95 10/06/19 00:52 10/06/19 00:52 10/06/19 00:52 10/06/19 00:52 10/06/19 00:52 - Notes Notes: GENERAL: Well-appearing, well-nourished and in no acute distress. HEAD: Atraumatic, normocephalic. EYES: Extraocular movements intact, sclera anicteric, conjunctiva are normal. NECK: Normal range of motion, supple without lymphadenopathy or JVD. LUNGS: Breath sounds clear to auscultation bilaterally and equal. No wheezes rales or rhonchi. HEART: Regular rate and rhythm without murmurs, rubs or gallops. ABDOMEN: Soft, nontender. No guarding, no rebound. No masses appreciated. EXTREMITIES: Normal range of motion, no pitting or edema. No clubbing or cyanosis. NEUROLOGICAL: Cranial nerves II through XII grossly intact. Normal speech. Patient is alert and oriented x3. PSYCH: Normal mood, normal affect. SKIN: Warm, Dry, normal turgor, no rashes or lesions noted. Course - Re-evaluation Re-evalutation: 10/06/19 78-year-old female presents with nausea/vomiting/diarrhea and dysuria. Cardiac work-up, lactic acid, UA ordered. Patient is nontoxic, well-appearing. Abdomen is soft nontender. Patient is alert and oriented x3 and does not appear confused. Patient is afebrile. 10/06/19 03:28 Pt's labwork shows lactic of 4.3 and potassium of 2.5. Potassium PO and IV ordered including another 1 L bolus. Pt's labwork also shows TASHA. Mag add on ordered. 10/06/19 03:[address] Villagran, attending, who agrees with plan of care to admit pt. 10/06/19 04:[address] Bell who accepted pt for admission. - Vital Signs Vital signs: Temp Pulse Resp BP Pulse Ox 102.2 F H 95 24 H 125/72 90 L 10/06/19 03:48 10/06/19 00:52 10/06/19 01:36 10/06/19 01:36 10/06/19 01:36 - Laboratory Result Diagrams: 10/06/19 01:15 10/06/19 01:15 Laboratory results interpreted by me: 10/06/19 10/06/19 10/06/19 01:15 01:15 01:15 RDW 15.1 H Plt Count 100 L Lymph % (Auto) 6.5 L Cowley % (Auto) 0.5 L Absolute Lymphs (auto) 0.4 L Absolute Monos (auto) 0.0 L Seg Neutrophils % 92.4 H Potassium 2.5 L* BUN 24 H Creatinine 1.71 H Est GFR ( Amer) 35 L Est GFR (MDRD) Non-Af 29 L Glucose 140 H Lactic Acid (Sepsis) 4.3 H Total Bilirubin 2.7 H Direct Bilirubin 1.1 H AST 47 H Alkaline Phosphatase 200 H Urine Protein Urine Blood Urine Nitrite (Reflex) Urine Urobilinogen Leukocyte Esterase Rfl 10/06/19 01:35 RDW Plt Count Lymph % (Auto) Cowley % (Auto) Absolute Lymphs (auto) Absolute Monos (auto) Seg Neutrophils % Potassium BUN Creatinine Est GFR ( Amer) Est GFR (MDRD) Non-Af Glucose Lactic Acid (Sepsis) Total Bilirubin Direct Bilirubin AST Alkaline Phosphatase Urine Protein 100 H Urine Blood MODERATE H Urine Nitrite (Reflex) POSITIVE H Urine Urobilinogen 4.0 H Leukocyte Esterase Rfl LARGE H Discharge - Discharge Clinical Impression: Lactic acidosis, Hypokalemia, Acute kidney injury UTI (urinary tract infection) Qualifiers: Urinary tract infection type: site unspecified Hematuria presence: with hematuria Qualified Code(s): N39.0 - Urinary tract infection, site not specified; R31.9 - Hematuria, unspecified Sepsis Qualifiers: Sepsis type: sepsis due to unspecified organism Sepsis acute organ dysfunction status: unspecified Qualified Code(s): A41.9 - Sepsis, unspecified organism Condition: Stable Disposition: ADMITTED INPATIENT Admitting Provider: Arabella (Hospitalist) Unit Admitted: Medical Floor Referrals: ADRIANO SAAVEDRA PA-C [Primary Care Provider] - Follow up as needed
[2019-10-06 03:03] LABS: APPEARANCE,URINE SLIGHTLY-CLOUDY; BILIRUBIN,URINE NEGATIVE (NEGATIVE); COLOR,URINE AMBER; GLUCOSE, URINE NEGATIVE (NEGATIVE); KETONES,URINE NEGATIVE (NEGATIVE); PROTEIN,URINE 100 mg/dL (NEGATIVE); URINE SPECIFIC GRAVITY 1.011
[2019-10-06 03:05] LABS: ABSOLUTE LYMPHOCYTES (AUTO) 0.4 10^3/uL (0.5-4.7); ABSOLUTE NEUT (AUTO) 6.3 10^3/uL (1.7-8.2); BASOPHILS % (AUTO) 0.3 % (0-2); EOSINOPHILS % (AUTO) 0.3 % (0-6); HEMATOCRIT 43.4 % (36.0-47.0); HEMOGLOBIN 14.7 g/dL (12.0-15.5); LYMPHOCYTES % (AUTO) 6.5 % (13-45); MEAN CORPUSCULAR HEMOGLOBIN 29.8 pg (27.0-33.4); MEAN CORPUSCULAR HGB CONC 33.9 g/dL (32.0-36.0); MEAN CORPUSCULAR VOLUME 88 fl (80-97); MONOCYTES % (AUTO) 0.5 % (3-13); PLATELET COUNT 100 10^3/uL (150-450); RED BLOOD COUNT 4.93 10^6/uL (3.72-5.28); RED CELL DISTRIBUTION WIDTH 15.1 % (11.5-14.0); SEGMENTED NEUTROPHILS % (AUTO) 92.4 % (42-78); TOTAL CELLS COUNTED % (AUTO) 100 %; WHITE BLOOD COUNT 6.8 10^3/uL (4.0-10.5)
[2019-10-06 03:07] LABS: ALKALINE PHOSPHATASE 200 U/L (38-126); ANION GAP 18 (5-19); ASPARTATE AMINO TRANSFERASE 47 U/L (14-36); BILIRUBIN,DIRECT 1.1 mg/dL (0.0-0.4); BILIRUBIN,TOTAL 2.7 mg/dL (0.2-1.3); BLOOD UREA NITROGEN 24 mg/dL (7-20); CALCIUM 9.5 mg/dL (8.4-10.2); CARBON DIOXIDE 22 mmol/L (22-30); CHLORIDE 102 mmol/L (98-107); GLUCOSE 140 mg/dL (75-110); TOTAL PROTEIN 6.9 g/dL (6.3-8.2)
--- NOTE | 2019-10-06 03:17 | RADIOLOGY REPORT (SQ) ---
EXAM DESCRIPTION: XR CHEST 2 VIEWS COMPLETED DATE/TME: 10/06/2019 02:29 CLINICAL HISTORY: 78 years, Female, altered mental status, n/v COMPARISON: 01/23/2019 chest NUMBER OF VIEWS: 2 TECHNIQUE: 2 views of the chest LIMITATIONS: None. FINDINGS: The heart size is normal. Atheromatous change of the thoracic aorta. Lungs are clear. No pneumothorax IMPRESSION: No acute cardiopulmonary process copyright 2010 [employer]- All Rights Reserved
[2019-10-06 03:20] LABS: POTASSIUM 2.5 mmol/L (3.6-5.0)
[2019-10-06] MEDS ORDERED: CEFTRIAXONE INJ 1000 MG VIAL IV ONE (03:25)
[2019-10-06] MEDS ORDERED: POTASSIUM CHLORIDE 20 MEQ PACKET PO ONE (03:25)
[2019-10-06] MEDS ORDERED: MAGNESIUM OXIDE 400 MG TABLET PO ONE (03:56)
[2019-10-06] MEDS ORDERED: ACETAMINOPHEN 325 MG TABLET PO ONE (03:58)
[2019-10-06] MEDS ORDERED: MEROPENEM 1 GM VIAL IV PRN (04:30)
[2019-10-06] MEDS: POTASSI CL 20 MEQ/50 ML RIDER 20 MEQ/50 ML RTUPB IV SCH ×4 (04:57→13:52)
[2019-10-06] MEDS ORDERED: LEVALBUTEROL HCL NEB 0.63 MG/3 ML AMPUL NEB PRN (05:06)
[2019-10-06] MEDS ORDERED: MAG HYDROX/AL HYDROX/SIMETH SUSP 30 ML UDCUP PO PRN (05:06)
[2019-10-06] MEDS ORDERED: MAGNESIUM HYDROXIDE SUSP 30 ML UDCUP PO PRN (05:06)
[2019-10-06] MEDS ORDERED: ACETAMINOPHEN 650 MG SUPP.RECT PR PRN (05:11)
[2019-10-06] MEDS ORDERED: HYDRALAZINE HCL INJ/PF 20 MG/1 ML SDV IV PRN (05:11)
[2019-10-06] MEDS ORDERED: NICOTINE 21 MG/24 HR PATCH.TD24 TD PRN (05:11)
[2019-10-06] MEDS ORDERED: NALBUPHINE HCL INJ 10 MG/1 ML AMPULE IV PRN (05:11)
[2019-10-06] MEDS ORDERED: MEROPENEM 1 GM in NORMAL SALINE 50 ML IV SCH (06:00)
[2019-10-06] MEDS: LEVOTHYROXINE SODIUM 0.1 MG TABLET PO SCH (06:39)
[2019-10-06] MEDS: HEPARIN SOD (PORCINE) 5,000 UNIT/ML 1 ML VIAL SUBCUT SCH ×3 (06:42→22:09)
--- NOTE | 2019-10-06 06:54 | PDOC H&P ---
History of Present Illness Admission Date/PCP: 10/06/2019 04:31 ADRIANO SAAVEDRA PA-C Patient complains of: Altered mental status History of Present Illness: HOWARD NEGRON is a 78 year old female presented to the emergency room with acute altered mental status. Patient was sent to the emergency room via EMS by her family who claimed that she was acutely confused upon awakening late last evening. Patient's confusion was noted to be associated with dysuria and mild hematuria that began 2 days ago and nausea, vomiting, mild abdominal cramping and diarrhea which began yesterday. The patient's symptoms had been accompanied by a subjective fever. Patient denies other associated or accompanying signs and symptoms. Patient admits prior similar symptoms with urinary tract infections. Patient denies any aggravating or ameliorating factors for her altered mental status. In the emergency room patient is found to have a normal mental status exam, a low potassium at 2.5, an elevated lactic acid at 4.3, a urine which showed severe pyuria and a positive nitrite and an acute elevation of her creatinine. She was subsequently admitted to hospital for further evaluation and treatment. Past Medical History Cardiac Medical History: Reports: Hyperlipidema, Hypertension Denies: Coronary Artery Disease, Myocardial Infarction Pulmonary Medical History: Denies: Asthma, Bronchitis, Chronic Obstructive Pulmonary Disease (COPD), Pneumonia EENT Medical History: Reports: Cataracts - Bilateral Denies: Ears - Hearing aids Neurological Medical History: Denies: Hemorrhagic CVA, Ischemic CVA, Seizures Endocrine Medical History: Reports: Diabetes Mellitus Type 2 - borderline Denies: Diabetes Mellitus Type 1, Hyperthyroidism, Hypothyroidism Renal/ Medical History: Denies: Chronic Kidney Disease, Nephrolithiasis Malignancy Medical History: Reports: None GI Medical History: Reports: Gastroesophageal Reflux Disease Denies: Cirrhosis, Crohn's Disease, Hepatitis, Hiatal Hernia, Ulcerative Colitis Musculoskeltal Medical History: Reports: Arthritis - Generalized osteoarthritis Denies: Fibromyalgia, Gout Skin Medical History: Denies: Eczema, Psoriasis Psychiatric Medical History: Denies: Alcohol Dependency, Substance Abuse, Tobacco Dependency Traumatic Medical History: Reports: None Hematology: Reports: Anemia Denies: Bleeding Tendencies Infectious Medical History: Reports: None Past Surgical History Past Surgical History: Reports: Adenoidectomy, Appendectomy, Cholecystectomy, Hysterectomy, Tonsillectomy, Other - Bilateral cataract surgery, bilateral breast reductions Social History Information Source: Patient Smoking Status: Former Smoker Electronic Cigarette use?: No Frequency of Alcohol Use: None Hx Recreational Drug Use: No Drugs: None Hx Prescription Drug Abuse: No - Advance Directive Resuscitation Status: Full Code Surrogate healthcare decision maker:: Chun Negron Family History Family History: CAD, Hypertension, Malignancy. denies: DM Parental Family History Reviewed: Yes Children Family History Reviewed: No Sibling(s) Family History Reviewed.: Yes Medication/Allergy Home Medications: Levothyroxine Sodium [Synthroid 0.1 mg Tablet] 0.1 mg PO Q6AM 04/14/18 Losartan Potassium [Cozaar 100 mg Tablet] 100 mg PO DAILY 04/14/18 Metoprolol Tartrate [Lopressor 25 mg Tablet] 25 mg PO Q12 04/14/18 Trazodone HCl 100 mg PO QHS #30 tablet 04/16/18 Ciprofloxacin HCl [Cipro 500 mg Tablet] 500 mg PO BID #20 tablet 07/12/18 Levofloxacin [Levaquin 500 mg Tablet] 500 mg PO DAILY #10 tablet 07/12/18 Omeprazole 20 mg PO DAILY 07/12/18 Cephalexin Monohydrate [Keflex 500 mg Capsule] 500 mg PO QID #20 capsule 06/24/19 Allergies/Adverse Reactions: midazolam HCl [From Versed] Allergy (Unknown, Verified 06/24/19 14:05) hydrocodone [Hydrocodone] Allergy (Verified 06/24/19 14:05) Pruritis nitrofurantoin [From Macrobid] Allergy (Verified 06/24/19 14:05) Pruritis nitrofurantoin macrocrystalline [From Macrobid] Allergy (Verified 06/24/19 14:05) Pruritis Sulfa (Sulfonamide Antibiotics) Adverse Reaction (Verified 06/24/19 14:05) Anxiety tramadol Adverse Reaction (Verified 06/24/19 14:05) Review of Systems Constitutional: PRESENT: as per HPI, fever(s) - Subjective. ABSENT: chills Eyes: ABSENT: visual disturbances, other - Eye pain Ears: ABSENT: hearing changes, other - Ear pain Nose, Mouth, and Throat: ABSENT: mouth pain, sore throat Cardiovascular: ABSENT: chest pain, palpitations Respiratory: ABSENT: cough, dyspnea Gastrointestinal: PRESENT: as per HPI, abdominal pain, diarrhea, nausea, vo miting. ABSENT: constipation Genitourinary: PRESENT: as per HPI, dysuria, hematuria Musculoskeletal: ABSENT: back pain, joint swelling, muscle weakness Integumentary: ABSENT: pruritus, rash Neurological: PRESENT: as per HPI, confusion. ABSENT: convulsions, focal weakness, memory loss, syncope Psychiatric: ABSENT: anxiety, depression Endocrine: ABSENT: cold intolerance, heat intolerance Hematologic/Lymphatic: ABSENT: easy bleeding, easy bruising Allergic/Immunologic: ABSENT: seasonal rhinorrhea Physical Exam Vital Signs: Temp Pulse Resp BP Pulse Ox 102.2 F H 95 24 H 125/72 90 L 10/06/19 03:48 10/06/19 00:52 10/06/19 01:36 10/06/19 01:36 10/06/19 01:36 Intake & Output 10/04/19 10/05/19 10/06/19 23:59 23:59 23:59 Weight 66.7 kg General appearance: PRESENT: no acute distress, cooperative Head exam: PRESENT: atraumatic, normocephalic Eye exam: PRESENT: conjunctiva pink. ABSENT: conjunctival injection, scleral i cterus Ear exam: PRESENT: normal external ear exam. ABSENT: bleeding, drainage Mouth exam: PRESENT: dry mucosa, neck supple Neck exam: ABSENT: thyromegaly, tracheal deviation Respiratory exam: PRESENT: clear to auscultation oli, symmetrical, unlabored Cardiovascular exam: PRESENT: RRR. ABSENT: clicks, gallop, rubs Pulses: PRESENT: normal radial pulses, normal dorsalis pedis pul Vascular exam: PRESENT: normal capillary refill. ABSENT: pallor GI/Abdominal exam: PRESENT: normal bowel sounds, soft. ABSENT: tenderness Rectal exam: PRESENT: deferred Extremities exam: ABSENT: joint swelling, pedal edema Musculoskeletal exam: ABSENT: deformity, dislocation Neurological exam: PRESENT: alert, oriented to person, oriented to place, oriented to time, oriented to situation, CN II-XII grossly intact. ABSENT: motor sensory deficit Psychiatric exam: PRESENT: appropriate affect, normal mood Skin exam: PRESENT: dry, intact, warm. ABSENT: jaundice, rash, urticaria Results Laboratory Results: 10/06/19 01:15 10/06/19 01:15 10/06/19 10/06/19 10/06/19 01:15 01:15 01:15 WBC 6.8 RBC 4.93 Hgb 14.7 Hct 43.4 MCV 88 MCH 29.8 MCHC 33.9 RDW 15.1 H Plt Count 100 L Seg Neutrophils % 92.4 H Sodium 141.9 Potassium 2.5 L* Chloride 102 Carbon Dioxide 22 Anion Gap 18 BUN 24 H Creatinine 1.71 H Est GFR ( Amer) 35 L Glucose 140 H Calcium 9.5 Magnesium 1.7 Total Bilirubin 2.7 H AST 47 H Alkaline Phosphatase 200 H Total Protein 6.9 Albumin 4.0 Lipase 72.2 Urine Color Urine Appearance Urine pH Ur Specific [place] Urine Protein Urine Glucose (UA) Urine Ketones Urine Blood Urine RBC (Auto) 10/06/19 01:35 WBC RBC Hgb Hct MCV MCH MCHC RDW Plt Count Seg Neutrophils % Sodium Potassium Chloride Carbon Dioxide Anion Gap BUN Creatinine Est GFR ( Amer) Glucose Calcium Magnesium Total Bilirubin AST Alkaline Phosphatase Total Protein Albumin Lipase Urine Color RASHAWN Urine Appearance SLIGHTLY-CLOUDY Urine pH 6.0 Ur Specific [place] 1.011 Urine Protein 100 H Urine Glucose (UA) NEGATIVE Urine Ketones NEGATIVE Urine Blood MODERATE H Urine RBC (Auto) 18 10/06/19 01:15 Troponin I 0.013 Impressions: Chest X-Ray 10/06/19 02:29 IMPRESSION: No acute cardiopulmonary process copyright 2011 [employer]- All Rights Reserved Assessment and Plan - Diagnosis (1) UTI (urinary tract infection) Qualifiers: Urinary tract infection type: site unspecified Hematuria presence: with hematuria Qualified Code(s): N39.0 - Urinary tract infection, site not specified; R31.9 - Hematuria, unspecified Is this a current diagnosis for this admission?: Yes (2) Sepsis Qualifiers: Sepsis type: sepsis due to unspecified organism Sepsis acute organ dysfunction status: with acute organ dysfunction Severe sepsis acute organ dysfunction type: encephalopathy Severe sepsis shock status: without septic shock Qualified Code(s): A41.9 - Sepsis, unspecified organism; R65.20 - Severe sepsis without septic shock; G93.40 - Encephalopathy, unspecified Is this a current diagnosis for this admission?: Yes (3) Nausea, vomiting and diarrhea Is this a current diagnosis for this admission?: Yes (4) Lactic acidosis Is this a current diagnosis for this admission?: Yes (5) Hypokalemia Is this a current diagnosis for this admission?: Yes (6) Acute kidney injury Is this a current diagnosis for this admission?: Yes (7) Altered mental status Qualifiers: Altered mental status type: somnolence Qualified Code(s): R40.0 - Somnolence Is this a current diagnosis for this admission?: Yes (8) Hypertension Qualifiers: Hypertension type: essential hypertension Qualified Code(s): I10 - Essential (primary) hypertension Is this a current diagnosis for this admission?: Yes (9) Hyperlipidemia Qualifiers: Hyperlipidemia type: unspecified Qualified Code(s): E78.5 - Hyperlipidemia, unspecified Is this a current diagnosis for this admission?: Yes (10) Diabetes mellitus type 2 in nonobese Is this a current diagnosis for this admission?: Yes (11) Nonalcoholic steatohepatitis Is this a current diagnosis for this admission?: Yes (12) Hypothyroidism Qualifiers: Hypothyroidism type: unspecified Qualified Code(s): E03.9 - Hypothyroidism, unspecified Is this a current diagnosis for this admission?: Yes - Plan Summary Summary: Patient is admitted to medical floor where she received routine symptomatic care and supportive cares. She will be treated with IV fluids and supplemental potassium. She will be monitored closely in terms of her vital signs. She will be treated with meropenem 1 g IV every 8 hours initially until blood and urine culture results are available. Serial lactic acid levels will be obtained. CBCs and metabolic profiles will be followed closely throughout her hospital course. She will be continued on her usual medications for chronic medical illnesses as appropriate. She will use Nubain 5 to 10 mg IV every 3 hours on an as-needed basis for pain. - Time Time Spent with patient: 25-34 minutes Smoking Cessation Education: 3 to 10 minutes Medications reviewed and adjusted accordingly: Yes Anticipated discharge: Home - Inpatient Certification Based on my medical assessment, after consideration of the patient's comorbidities, presenting symptoms, or acuity I expect that the services needed warrant INPATIENT care.: Yes I certify that my determination is in accordance with my understanding of Medicare's requirements for reasonable and necessary INPATIENT services [42 CFR 412.3e].: Yes Medical Necessity: Need Close Monitoring Due to Risk of Patient Decompensation, Need For IV Fluids, Need for IV Antibiotics, Risk of Complication if Not Cared For in Hospital
--- NOTE | 2019-10-06 07:45 | EKG REPORT ---
SEVERITY:- ABNORMAL ECG - SINUS RHYTHM MULTIFORM VENTRICULAR PREMATURE COMPLEXES LEFT BUNDLE BRANCH BLOCK : Confirmed by: Benny Amor MD 06-Oct-2019 07:43:58
[2019-10-06] MEDS: ONDANSETRON HCL INJ/PF 4 MG/2 ML SDV IV PRN ×3 (08:24→20:00)
[2019-10-06] MEDS ORDERED: INFLUENZA QUAD (6MOS+) 2019-20 VAC 0.5 ML SYR IM ONE (08:45)
[2019-10-06] MEDS: MEROPENEM 1 GM in NORMAL SALINE 50 ML IV SCH ×2 (10:25→17:26)
[2019-10-06] MEDS: DOCUSATE SODIUM 100 MG CAPSULE PO SCH ×2 (10:40→17:22)
[2019-10-06] MEDS: FAMOTIDINE 20 MG TABLET PO SCH ×2 (10:41→21:28)
[2019-10-06] MEDS: LOSARTAN POTASSIUM 50 MG TABLET PO SCH (12:18)
[2019-10-06] MEDS: METOPROLOL SUCCINATE 50 MG TAB.SR.24H PO SCH (12:19)
[2019-10-06] MEDS: RINGERS SOLUTION,LACTATED 1,000 ML IV PRN ×2 (12:51→21:30)
[2019-10-06] MEDS: ACETAMINOPHEN 325 MG TABLET PO PRN (13:04)
[2019-10-06] MEDS ORDERED: POTASSI CL 20 MEQ/50 ML RIDER 20 MEQ/50 ML RTUPB IV ONE (13:51)
[2019-10-06 13:53] LABS: ANION GAP 12 (5-19); BLOOD UREA NITROGEN 23 mg/dL (7-20); CALCIUM 7.8 mg/dL (8.4-10.2); CARBON DIOXIDE 22 mmol/L (22-30); CHLORIDE 109 mmol/L (98-107); GLUCOSE 117 mg/dL (75-110)
[2019-10-06 13:58] LABS: POTASSIUM 3.5 mmol/L (3.6-5.0)
[2019-10-06 14:18] LABS: HEMATOCRIT 34.3 % (36.0-47.0); MEAN CORPUSCULAR HEMOGLOBIN 29.9 pg (27.0-33.4); MEAN CORPUSCULAR HGB CONC 34.1 g/dL (32.0-36.0); MEAN CORPUSCULAR VOLUME 88 fl (80-97); RED BLOOD COUNT 3.91 10^6/uL (3.72-5.28); RED CELL DISTRIBUTION WIDTH 14.9 % (11.5-14.0)
[2019-10-06 14:49] LABS: HEMOGLOBIN 11.7 g/dL (12.0-15.5); WHITE BLOOD COUNT 17.8 10^3/uL (4.0-10.5)
[2019-10-06 14:50] LABS: PLATELET COUNT 91 10^3/uL (150-450)
[2019-10-06 14:53] LABS: ABSOLUTE LYMPHOCYTES# (MANUAL) 0.2 10^3/uL (0.5-4.7); ABSOLUTE MONOCYTES # (MANUAL) 0.5 10^3/uL (0.1-1.4); BAND NEUTROPHILS % (MANUAL) 9 % (3-5); BASOPHILS % (MANUAL) 0 % (0-2); EOSINOPHILS % (MANUAL) 0 % (0-6); LYMPHOCYTES % (MANUAL) 1 % (13-45); MONOCYTES % (MANUAL) 3 % (3-13); SEGMENTED NEUTROPHILS % (MAN) 87 % (42-78); TOTAL CELLS COUNTED 100
[2019-10-06 14:56] LABS: ANISOCYTOSIS SLIGHT; PLATELET COMMENT DECREASED; PLATELET LARGE PRESENT; TOXIC GRANULATION 1+; TOXIC VACUOLATION PRESENT
[2019-10-06] MEDS ORDERED: KETOROLAC TROMETHAMINE INJ/PF 30 MG/1 ML SDV IV PRN (15:06)
[2019-10-06] MEDS: OXYCODONE-ACETAMINOPHEN 5-325 MG TABLET PO PRN (16:23)
[2019-10-06 17:23] LABS: ANION GAP 11 (5-19); BLOOD UREA NITROGEN 21 mg/dL (7-20); CARBON DIOXIDE 21 mmol/L (22-30); CHLORIDE 111 mmol/L (98-107); GLUCOSE 115 mg/dL (75-110)
[2019-10-06] MEDS: TRAZODONE HCL 50 MG TABLET PO SCH (21:28)
[2019-10-07] MEDS: MEROPENEM 1 GM in NORMAL SALINE 50 ML IV SCH ×3 (02:10→17:13)
[2019-10-07] MEDS: HEPARIN SOD (PORCINE) 5,000 UNIT/ML 1 ML VIAL SUBCUT SCH ×3 (05:10→21:37)
[2019-10-07] MEDS: LEVOTHYROXINE SODIUM 0.1 MG TABLET PO SCH (05:39)
[2019-10-07] MEDS: ACETAMINOPHEN 325 MG TABLET PO PRN (05:44)
[2019-10-07 06:23] LABS: HEMATOCRIT 33.9 % (36.0-47.0); HEMOGLOBIN 11.5 g/dL (12.0-15.5); MEAN CORPUSCULAR VOLUME 88 fl (80-97); RED BLOOD COUNT 3.84 10^6/uL (3.72-5.28); RED CELL DISTRIBUTION WIDTH 15.4 % (11.5-14.0); WHITE BLOOD COUNT 12.5 10^3/uL (4.0-10.5)
[2019-10-07 06:31] LABS: ANION GAP 9 (5-19); BLOOD UREA NITROGEN 21 mg/dL (7-20); CALCIUM 8.1 mg/dL (8.4-10.2); CARBON DIOXIDE 23 mmol/L (22-30); CHLORIDE 112 mmol/L (98-107); CHOLESTEROL 153.22 mg/dL (0-200); GLUCOSE 78 mg/dL (75-110); POTASSIUM 3.6 mmol/L (3.6-5.0); TRIGLYCERIDES 151 mg/dL (<150)
[2019-10-07 06:42] LABS: DIRECT LDL 64 mg/dL (<100)
[2019-10-07 06:43] LABS: VLDL CHOLESTEROL 30.2 mg/dL (10-31)
[2019-10-07 07:31] LABS: PLATELET COUNT 72 10^3/uL (150-450)
[2019-10-07] MEDS: LOSARTAN POTASSIUM 50 MG TABLET PO SCH (10:21)
[2019-10-07] MEDS: FAMOTIDINE 20 MG TABLET PO SCH ×2 (10:22→21:39)
[2019-10-07] MEDS: ONDANSETRON HCL INJ/PF 4 MG/2 ML SDV IV PRN (10:22)
[2019-10-07] MEDS: METOPROLOL SUCCINATE 50 MG TAB.SR.24H PO SCH (10:22)
[2019-10-07] MEDS: DOCUSATE SODIUM 100 MG CAPSULE PO SCH ×2 (10:23→17:09)
[2019-10-07] MEDS: RINGERS SOLUTION,LACTATED 1,000 ML IV PRN ×2 (10:27→17:13)
--- NOTE | 2019-10-07 11:07 | PDOC PROGRESS REPORT ---
Subjective Progress Note for:: 10/07/19 Reason For Visit: ACUTE GASTROENTERITIS, ACUTE URINARY TRACT 10/07/2019 Primary complaint was altered mental status in the ER, probably secondary to urosepsis She has improved significantly on IV fluids and IV antibiotics Physical Exam Vital Signs: Temp Pulse Resp BP Pulse Ox 98.2 F 81 19 122/56 L 93 10/07/19 00:18 10/07/19 00:18 10/07/19 00:18 10/07/19 00:18 10/07/19 00:18 Intake & Output 10/06/19 10/07/19 10/08/19 06:59 06:59 06:59 Intake Total 2047 364 Balance 2047 364 Weight 66.7 kg 70.4 kg General appearance: PRESENT: no acute distress, other - Awake alert talking in full sentences oriented Respiratory exam: PRESENT: clear to auscultation oli. ABSENT: rales, rhonchi, wheezes Cardiovascular exam: PRESENT: RRR. ABSENT: diastolic murmur, rubs, systolic murmur Neurological exam: PRESENT: alert, awake, oriented to person, oriented to place, oriented to time, oriented to situation, CN II-XII grossly intact. ABSENT: motor sensory deficit Psychiatric exam: PRESENT: appropriate affect, normal mood. ABSENT: homicidal ideation, suicidal ideation Results Laboratory Results: 10/07/19 05:29 10/07/19 05:29 10/06/19 10/06/19 10/06/19 13:10 13:15 13:15 WBC 17.8 H D RBC 3.91 Hgb 11.7 L D Hct 34.3 L MCV 88 MCH 29.9 MCHC 34.1 RDW 14.9 H Plt Count 91 L Seg Neutrophils % Not Reportable Sodium 143.0 Potassium 3.5 L D Chloride 109 H Carbon Dioxide 22 Anion Gap 12 BUN 23 H Creatinine 1.64 H Est GFR ( Amer) 37 L Glucose 117 H Lactic Acid 3.0 H Calcium 7.8 L Magnesium Triglycerides Cholesterol LDL Cholesterol Direct VLDL Cholesterol HDL Cholesterol TSH 10/06/19 10/07/19 10/07/19 16:59 05:29 05:29 WBC 12.5 H RBC 3.84 Hgb 11.5 L Hct 33.9 L MCV 88 MCH 30.0 MCHC 34.0 RDW 15.4 H Plt Count 72 L Seg Neutrophils % Sodium 142.8 143.6 Potassium 4.0 3.6 Chloride 111 H 112 H Carbon Dioxide 21 L 23 Anion Gap 11 9 BUN 21 H 21 H Creatinine 1.52 H 1.50 H Est GFR ( Amer) 40 L 41 L Glucose 115 H 78 Lactic Acid Calcium 8.0 L 8.1 L Magnesium 1.7 Triglycerides 151 H Cholesterol 153.22 LDL Cholesterol Direct 64 VLDL Cholesterol 30.2 HDL Cholesterol 31 L TSH 10/07/19 05:29 WBC RBC Hgb Hct MCV MCH MCHC RDW Plt Count Seg Neutrophils % Sodium Potassium Chloride Carbon Dioxide Anion Gap BUN Creatinine Est GFR ( Amer) Glucose Lactic Acid Calcium Magnesium Triglycerides Cholesterol LDL Cholesterol Direct VLDL Cholesterol HDL Cholesterol TSH 60.70 H 10/06/19 01:15 Troponin I 0.013 Impressions: Chest X-Ray 10/06/19 02:29 IMPRESSION: No acute cardiopulmonary process copyright 2010 [email or web address]- All Rights Reserved Assessment and Plan - Diagnosis (1) Acute kidney injury Is this a current diagnosis for this admission?: Yes (2) Diabetes mellitus type 2 in nonobese Is this a current diagnosis for this admission?: Yes (3) Altered mental status Qualifiers: Altered mental status type: somnolence Qualified Code(s): R40.0 - Somnolence Is this a current diagnosis for this admission?: Yes (4) UTI (urinary tract infection) Qualifiers: Urinary tract infection type: site unspecified Hematuria presence: with hematuria Qualified Code(s): N39.0 - Urinary tract infection, site not specified; R31.9 - Hematuria, unspecified Is this a current diagnosis for this admission?: Yes - Plan Summary Summary: Patient is admitted to medical floor where she received routine symptomatic care and supportive cares. She will be treated with IV fluids and supplemental potassium. She will be monitored closely in terms of her vital signs. She will be treated with meropenem 1 g IV every 8 hours initially until blood and urine culture results are available. Serial lactic acid levels will be obtained. CBCs and metabolic profiles will be followed closely throughout her hospital course. She will be continued on her usual medications for chronic medical illnesses as appropriate. She will use Nubain 5 to 10 mg IV every 3 hours on an as-needed basis for pain. 10/07/2019 Today morning around between 3 and 6 AM patient had a temperature 102.2. Since then however she has been afebrile Pulse is 81 and regular Pressure is normal 122/56 Oxygen saturation is in the mid 90s on room air Count has come down to 12,500, platelets at 72,000 down from 100,000, Potassium is at 3.6, will add 10 mEq twice daily Patient currently on meropenem IV for her UTI, culture is pending Possibly discharge to home tomorrow - Time Time Spent with patient: 15-24 minutes
[2019-10-07] MEDS: OXYCODONE-ACETAMINOPHEN 5-325 MG TABLET PO PRN (12:06)
[2019-10-07] MEDS: POTASSIUM CHLORIDE 10 MEQ TABLET.ER PO SCH ×2 (12:08→21:39)
[2019-10-07] MEDS ORDERED: OXYCODONE-ACETAMINOPHEN 5-325 MG TABLET PO PRN (13:28)
[2019-10-07] MEDS ORDERED: OXYCODONE-ACETAMINOPHEN 5-325 MG TABLET PO ONE (13:29)
[2019-10-07] MEDS: TRAZODONE HCL 50 MG TABLET PO SCH (21:39)
[2019-10-08] MEDS: MEROPENEM 1 GM in NORMAL SALINE 50 ML IV SCH ×2 (02:03→10:29)
[2019-10-08] MEDS: ACETAMINOPHEN 325 MG TABLET PO PRN (02:22)
[2019-10-08] MEDS: LEVOTHYROXINE SODIUM 0.1 MG TABLET PO SCH (05:37)
[2019-10-08] MEDS: HEPARIN SOD (PORCINE) 5,000 UNIT/ML 1 ML VIAL SUBCUT SCH (05:38)
[2019-10-08 05:50] LABS: HEMATOCRIT 33.9 % (36.0-47.0); HEMOGLOBIN 11.6 g/dL (12.0-15.5); MEAN CORPUSCULAR HEMOGLOBIN 29.9 pg (27.0-33.4); MEAN CORPUSCULAR HGB CONC 34.3 g/dL (32.0-36.0); MEAN CORPUSCULAR VOLUME 87 fl (80-97); RED BLOOD COUNT 3.88 10^6/uL (3.72-5.28); RED CELL DISTRIBUTION WIDTH 14.6 % (11.5-14.0); WHITE BLOOD COUNT 10.5 10^3/uL (4.0-10.5)
[2019-10-08 06:32] LABS: PLATELET COUNT 80 10^3/uL (150-450)
[2019-10-08] MEDS: LOSARTAN POTASSIUM 50 MG TABLET PO SCH (10:29)
[2019-10-08] MEDS: METOPROLOL SUCCINATE 50 MG TAB.SR.24H PO SCH (10:29)
[2019-10-08] MEDS: FAMOTIDINE 20 MG TABLET PO SCH (10:29)
[2019-10-08] MEDS: POTASSIUM CHLORIDE 10 MEQ TABLET.ER PO SCH (10:29)
[2019-10-08] MEDS: DOCUSATE SODIUM 100 MG CAPSULE PO SCH (10:30)
[2019-10-08 12:16] VITALS: BP 140/60
--- NOTE | 2019-10-08 16:20 | PDOC DISCHARGE SUMMARY ---
Impression - Admit/DC Date/PCP Admission Date/Primary Care Provider: 10/06/19 04:36 ADRIANO SAAVEDRA PA-C Discharge Date: 10/08/19 - Discharge Diagnosis (1) Acute kidney injury Is this a current diagnosis for this admission?: Yes (2) Diabetes mellitus type 2 in nonobese Is this a current diagnosis for this admission?: Yes (3) Altered mental status Is this a current diagnosis for this admission?: Yes (4) UTI (urinary tract infection) Is this a current diagnosis for this admission?: Yes (5) Gastroenteritis Is this a current diagnosis for this admission?: Yes - Assessment Summary: Patient is admitted to medical floor where she received routine symptomatic care and supportive cares. She will be treated with IV fluids and supplemental potassium. She will be monitored closely in terms of her vital signs. She will be treated with meropenem 1 g IV every 8 hours initially until blood and urine culture results are available. Serial lactic acid levels will be obtained. CBCs and metabolic profiles will be followed closely throughout her hospital course. She will be continued on her usual medications for chronic medical illnesses as appropriate. She will use Nubain 5 to 10 mg IV every 3 hours on an as-needed basis for pain. 10/07/2019 Today morning around between 3 and 6 AM patient had a temperature 102.2. Since then however she has been afebrile Pulse is 81 and regular Pressure is normal 122/56 Oxygen saturation is in the mid 90s on room air Count has come down to 12,500, platelets at 72,000 down from 100,000, Potassium is at 3.6, will add 10 mEq twice daily Patient currently on meropenem IV for her UTI, culture is pending Possibly discharge to home tomorrow 10/08/2019 She was discharged home the NicoDerm patch, potassium supplements, Keflex 250 mg 21 tablets for UTI Patient was asking to be discharged home. Patient's O2 at on room air was 93% Patient to follow-up with her primary care provider in 7 to 10 days White count today is down to 10,500 Renal function has improved BUN 21 creatinine 1.5 Cultures growing out E. coli sensitive to the cephalosporins - Additional Information Resuscitation Status: Full Code Discharge Diet: As Tolerated Discharge Activity: Activity As Tolerated, Balance Activity w/Rest, Bedrest Referrals: ADRIANO SAAVEDRA PA-C [Primary Care Provider] - 10/18/19 2:00 pm Prescriptions: Cephalexin Monohydrate [Keflex 250 mg Capsule] 250 mg PO Q8 7 Days #21 capsule Potassium Chloride [Klor-Con 10 Meq Tablet ER] 10 meq PO Q12 30 Days #60 tablet.er Nicotine [Nicoderm 21 mg/24 Hr Transderm Patch] 1 each TD DAILYP PRN 30 Days #30 patch.td24 PRN Reason: Home Medications: Amlodipine Besylate [Norvasc 10 mg Tablet] 10 mg PO DAILY 10/06/19 Diclofenac Sodium 75 mg PO DAILY 10/06/19 Gabapentin [Neurontin] 600 mg PO Q8 10/06/19 Ketotifen Fumarate [Refresh] 1 drop OU DAILYP PRN 10/06/19 Levothyroxine Sodium 100 mcg PO Q6AM 10/06/19 Losartan Potassium [Cozaar 100 mg Tablet] 100 mg PO DAILY 10/06/19 Metoprolol Succinate [Toprol Xl 25 mg Tab.sr] 25 mg PO DAILY 10/06/19 Multivitamin [Multiple Vitamins] 1 tab PO DAILY 10/06/19 Trazodone HCl [Desyrel] 50 mg PO QHS MDD MAY TAKE 100MG 10/06/19 Cephalexin Monohydrate [Keflex 250 mg Capsule] 250 mg PO Q8 7 Days #21 capsule 10/08/19 Losartan Potassium [Cozaar 50 mg Tablet] 100 mg PO DAILY tablet 10/08/19 Metoprolol Succinate [Toprol Xl 50 mg Tab.sr] 50 mg PO DAILY tab.sr.24h 10/08/19 Nicotine [Nicoderm 21 mg/24 Hr Transderm Patch] 1 each TD DAILYP PRN 30 Days #30 patch.td24 10/08/19 Potassium Chloride [Klor-Con 10 Meq Tablet ER] 10 meq PO Q12 30 Days #60 tablet.er 10/08/19 History of Present Illiness History of Present Illness: HOWARD ACUNA is a 78 year old female Physical Exam Vital Signs: Temp Pulse Resp BP Pulse Ox 99.0 F 84 16 140/60 H 93 10/08/19 12:11 10/08/19 12:11 10/08/19 12:11 10/08/19 12:11 10/08/19 12:11 Intake & Output 10/07/19 10/08/1919 06:59 06:59 06:59 Intake Total 6 1 240 Balance 3647 2093 240 Weight 70.4 kg 73.1 kg Results Laboratory Results: WBC 10.5 10^3/uL (4.0-10.5) 10/08/19 04:45 RBC 3.88 10^6/uL (3.72-5.28) 10/08/19 04:45 Hgb 11.6 g/dL (12.0-15.5) L 10/08/19 04:45 Hct 33.9 % (36.0-47.0) L 10/08/19 04:45 MCV 87 fl (80-97) 10/08/19 04:45 MCH 29.9 pg (27.0-33.4) 10/08/19 04:45 MCHC 34.3 g/dL (32.0-36.0) 10/08/19 04:45 RDW 14.6 % (11.5-14.0) H 10/08/19 04:45 Plt Count 80 10^3/uL (150-450) L 10/08/19 04:45 Lymph % (Auto) Not Reportable 10/06/19 13:15 Rooks % (Auto) Not Reportable 10/06/19 13:15 Eos % (Auto) Not Reportable 10/06/19 13:15 Baso % (Auto) Not Reportable 10/06/19 13:15 Absolute Neuts (auto) Not Reportable 10/06/19 13:15 Absolute Lymphs (auto) Not Reportable 10/06/19 13:15 Absolute Monos (auto) Not Reportable 10/06/19 13:15 Absolute Eos (auto) Not Reportable 10/06/19 13:15 Absolute Basos (auto) Not Reportable 10/06/19 13:15 Total Counted 100 10/06/19 13:15 Seg Neutrophils % Not Reportable 10/06/19 13:15 Seg Neuts % (Manual) 87 % (42-78) H 10/06/19 13:15 Band Neutrophils % 9 % (3-5) H 10/06/19 13:15 Lymphocytes % (Manual) 1 % (13-45) L 10/06/19 13:15 Monocytes % (Manual) 3 % (3-13) 10/06/19 13:15 Eosinophils % (Manual) 0 % (0-6) 10/06/19 13:15 Basophils % (Manual) 0 % (0-2) 10/06/19 13:15 Abs Neuts (Manual) 17.1 10^3/uL (1.7-8.2) H 10/06/19 13:15 Abs Lymphs (Manual) 0.2 10^3/uL (0.5-4.7) L 10/06/19 13:15 Abs Monocytes (Manual) 0.5 10^3/uL (0.1-1.4) 10/06/19 13:15 Absolute Eos (Manual) 0.0 10^3/uL (0.0-0.6) 10/06/19 13:15 Abs Basophils (Manual) 0.0 10^3/uL (0.0-0.2) 10/06/19 13:15 Toxic Granulation 1+ 10/06/19 13:15 Toxic Vacuolation PRESENT 10/06/19 13:15 Large Platelets PRESENT 10/06/19 13:15 Platelet Comment DECREASED 10/06/19 13:15 Anisocytosis SLIGHT 10/06/19 13:15 Sodium 143.6 mmol/L (137-145) 10/07/19 05:29 Potassium 3.6 mmol/L (3.6-5.0) 10/07/19 05:29 Chloride 112 mmol/L (98-107) H 10/07/19 05:29 Carbon Dioxide 23 mmol/L (22-30) 10/07/19 05:29 Anion Gap 9 (5-19) 10/07/19 05:29 BUN 21 mg/dL (7-20) H 10/07/19 05:29 Creatinine 1.50 mg/dL (0.52-1.25) H 10/07/19 05:29 Est GFR ( Amer) 41 (>60) L 10/07/19 05:29 Est GFR (MDRD) Non-Af 34 (>60) L 10/07/19 05:29 Glucose 78 mg/dL (75-110) 10/07/19 05:29 POC Glucose 113 mg/dL (70-110) H 10/06/19 08:16 Lactic Acid 3.0 mmol/L (0.7-2.1) H 10/06/19 13:10 Lactic Acid (Sepsis) 4.3 mmol/L (0.7-2.1) H 10/06/19 01:15 Calcium 8.1 mg/dL (8.4-10.2) L 10/07/19 05:29 Magnesium 1.7 mg/dL (1.6-2.3) 10/07/19 05:29 Total Bilirubin 2.7 mg/dL (0.2-1.3) H 10/06/19 01:15 Direct Bilirubin 1.1 mg/dL (0.0-0.4) H 10/06/19 01:15 Neonat Total Bilirubin Not Reportable 10/06/19 01:15 Neonat Direct Bilirubin Not Reportable 10/06/19 01:15 Neonat Indirect Bili Not Reportable 10/06/19 01:15 AST 47 U/L (14-36) H 10/06/19 01:15 ALT 27 U/L (<35) 10/06/19 01:15 Alkaline Phosphatase 200 U/L (38-126) H 10/06/19 01:15 Troponin I 0.013 ng/mL 10/06/19 01:15 Total Protein 6.9 g/dL (6.3-8.2) 10/06/19 01:15 Albumin 4.0 g/dL (3.5-5.0) 10/06/19 01:15 Triglycerides 151 mg/dL (<150) H 10/07/19 05:29 Cholesterol 153.22 mg/dL (0-200) 10/07/19 05:29 LDL Cholesterol Direct 64 mg/dL (<100) 10/07/19 05:29 VLDL Cholesterol 30.2 mg/dL (10-31) 10/07/19 05:29 HDL Cholesterol 31 mg/dL (>40) L 10/07/19 05:29 Lipase 72.2 U/L (23-300) 10/06/19 01:15 TSH 60.70 uIU/mL (0.47-4.68) H 10/07/19 05:29 Urine Color RASHAWN 10/06/19 01:35 Urine Appearance SLIGHTLY-CLOUDY 10/06/19 01:35 Urine pH 6.0 (5.0-9.0) 10/06/19 01:35 Ur Specific Plato 1.011 10/06/19 01:35 Urine Protein 100 mg/dL (NEGATIVE) H 10/06/19 01:35 Urine Glucose (UA) NEGATIVE mg/dL (NEGATIVE) 10/06/19 01:35 Urine Ketones NEGATIVE mg/dL (NEGATIVE) 10/06/19 01:35 Urine Blood MODERATE (NEGATIVE) H 10/06/19 01:35 Urine Nitrite (Reflex) POSITIVE (NEGATIVE) H 10/06/19 01:35 Urine Bilirubin NEGATIVE (NEGATIVE) 10/06/19 01:35 Urine Urobilinogen 4.0 mg/dL (<2.0) H 10/06/19 01:35 Leukocyte Esterase Rfl LARGE (NEGATIVE) H 10/06/19 01:35 Urine RBC (Auto) 18 /HPF 10/06/19 01:35 Urine Bacteria (Auto) 3+ /HPF 10/06/19 01:35 Urine WBC (Reflex) > 182 /HPF 10/06/19 01:35 Urine WBC Clumps FEW /HPF 10/06/19 01:35 Squamous Epi Cells Auto 1 /HPF 10/06/19 01:35 Urine Mucus (Auto) RARE /LPF 10/06/19 01:35 Urine Ascorbic Acid NEGATIVE (NEGATIVE) 10/06/19 01:35 10/06/19 01:15 Troponin I 0.013 Impressions: Chest X-Ray 10/06/19 02:29 IMPRESSION: No acute cardiopulmonary process copyright 2011 [employer]- All Rights Reserved Stroke Is this a Stroke Patient?: No Acute Heart Failure - Is this a Heart Failure Patient?: No
== END 2019-10-08 14:30 | disposition home or self-care (01) | DRG 690 ==
LOC: ER 00:51 → EH 04:36 → 4W 08:08 → 4N 12:42
PROVIDERS: ADMIT Emergency Medicine; ATTEND Emergency Medicine
DX: N39.0 Urinary tract infection, site not specified (principal); N17.9 Acute kidney failure, unspecified; E87.2 Acidosis; K52.9 Noninfective gastroenteritis and colitis, unspecified; R31.9 Hematuria, unspecified; E78.00 Pure hypercholesterolemia, unspecified; I10 Essential (primary) hypertension; E11.8 Type 2 diabetes mellitus with unspecified complications; K21.9 Gastro-esophageal reflux disease without esophagitis; E87.6 Hypokalemia; E03.9 Hypothyroidism, unspecified; K75.81 Nonalcoholic steatohepatitis (NASH); B96.20 Unspecified Escherichia coli [E. coli] as the cause of diseases classified elsewhere; Z79.01 Long term (current) use of anticoagulants; Z88.2 Allergy status to sulfonamides; Z88.8 Allergy status to other drugs, medicaments and biological substances; Z86.73 Personal history of transient ischemic attack (TIA), and cerebral infarction without residual deficits
CPT/HCPCS: 36415; 71046; 80048; 80053; 80061; 81001; 82962; 83605; 83690; 83735; 84443; 84484; 85025; 85027; 87086; 87088; 87186; 93005; 93010; 96361; 96374; 99285; J0696; J2185; J2405; J3480; J3490; J7030; J7120

== ENCOUNTER → 2020-06-11 | Outpatient (CLI) | payer MEDICARE ==
--- NOTE | 2020-06-11 14:45 | RADIOLOGY REPORT (SQ) ---
EXAM DESCRIPTION: RIBS RIGHT W/PA CHEST IMAGES COMPLETED DATE/TIME: 06/11/2020 2:20 pm REASON FOR STUDY: PLEURODYNIA R07.81 PLEURODYNIA COMPARISON: 2014 TECHNIQUE: Frontal view of the chest and additional views of the right ribs acquired. NUMBER OF VIEWS: Five views LIMITATIONS: None. FINDINGS: FRONTAL CXR: No pneumothorax. No pleural effusion. No atelectasis or infiltrates. RIBS: No displaced rib fractures. No lytic or blastic bony lesions. OTHER: No other significant finding. IMPRESSION: NO PNEUMOTHORAX. NO DISPLACED RIB FRACTURES. COMMENT: SITE OF TRAUMA/COMPLAINT MARKED/STAMP COMPLETED: No TECHNICAL DOCUMENTATION: JOB ID: [id number] 2010 [employer]- All Rights Reserved Reading location - IP/workstation name: [email or web address]
== END ==
LOC: OD 14:04
PROVIDERS: ATTEND Nurse Practitioner Family
DX: R07.81 Pleurodynia (principal)

== ENCOUNTER → 2020-10-14 | Day surgery (SDC) | payer MEDICARE ==
[~2020-10-14] MED LIST changes: -DEXAMETHASONE SOD PHOSPHATE INJ 4 MG/1 ML VIAL ONE; -ONDANSETRON 4 MG TAB.RAPDIS ONE; +PROPOFOL INJ 200 MG/20 ML VIAL IV ONE
[2020-10-14 07:27] VITALS: BP 135/58
== END ==
LOC: END 06:52
PROVIDERS: ATTEND Internal Medicine Gastroenterology
DX: Z53.8 Procedure and treatment not carried out for other reasons (principal)
CPT/HCPCS: 82962; J2704

== ENCOUNTER 2020-10-25 19:37 | Emergency (ER) | payer MEDICARE ==
--- NOTE | 2020-10-25 20:00 | ER Document Report ---
ED Medical Screen (RME) - General Chief Complaint: Headache <24 hrs old Stated Complaint: HEADACHE/COUGH/FEVER/CHILLS Time Seen by Provider: 10/25/20 19:50 Primary Care Provider: VIKAS BEGUM DO [Primary Care Provider] - Follow up as needed Notes: Patient presents with cough for the past 2 weeks. Patient reports fever at home and generalized weakness. Patient denies any nausea vomiting or diarrhea. Patient denies shortness of breath or chest pain. Patient feels that her symptoms worsened yesterday. Patient does have a history of hypertension, dyslipidemia and GERD and diabetes. I have greeted and performed a rapid initial assessment of this patient. A comprehensive ED assessment and evaluation of the patient, analysis of test results and completion of the medical decision making process will be conducted by additional ED providers. TRAVEL OUTSIDE OF THE [place] IN LAST 30 DAYS: No - Related Data Allergies/Adverse Reactions: midazolam HCl [From Versed] Allergy (Unknown, Verified 10/14/20 07:36) hydrocodone [Hydrocodone] Allergy (Verified 10/14/20 07:36) Pruritis nitrofurantoin [From Macrobid] Allergy (Verified 10/14/20 07:36) Pruritis nitrofurantoin macrocrystalline [From Macrobid] Allergy (Verified 10/14/20 07:36) Pruritis ketorolac [From Toradol] Adverse Reaction (Verified 10/14/20 07:36) Sulfa (Sulfonamide Antibiotics) Adverse Reaction (Verified 10/14/20 07:36) Anxiety tramadol Adverse Reaction (Verified 10/14/20 07:36) Past Medical History - Past Medical History Cardiac Medical History: Reports: Hx Hypercholesterolemia, Hx Hypertension Denies: Hx Coronary Artery Disease, Hx Heart Attack Pulmonary Medical History: Denies: Hx Asthma, Hx Bronchitis, Hx COPD, Hx Pneumonia Neurological Medical History: Reports: Hx Cerebrovascular Accident - SHE DOES NOT REMEMBER IT, HAS BEEN TOLD SHE HAS HAD A CVA. Denies: Hx Seizures Endocrine Medical History: Reports: Hx Diabetes Mellitus Type 2 - borderline. Denies: Hx Diabetes Mellitus Type 1, Hx Hyperthyroidism, Hx Hypothyroidism Renal/ Medical History: Denies: Hx Peritoneal Dialysis GI Medical History: Reports: Hx Gastroesophageal Reflux Disease. Denies: Hx Cirrhosis, Hx Crohn's Disease, Hx Hepatitis, Hx Hiatal Hernia, Hx Ulcer, Hx Ulcerative Colitis Musculoskeltal Medical History: Reports Hx Arthritis - Generalized osteoarthrit is, Denies Hx Fibromyalgia, Denies Hx Gout Skin Medical History: Denies Hx Eczema, Denies Hx Psoriasis Psychiatric Medical History: Reports: Hx Depression Infectious Medical History: Denies: Hx Hepatitis Past Surgical History: Reports: Hx Adenoidectomy, Hx Appendectomy, Hx Cholecystectomy, Hx Hysterectomy, Hx Thyroid Surgery, Hx Tonsillectomy, Other - Bilateral cataract surgery, bilateral breast reductions. Denies: Hx Mastectomy, Hx Open Heart Surgery, Hx Pacemaker - Immunizations Hx Diphtheria, Pertussis, Tetanus Vaccination: - UNSURE Physical Exam - Vital signs Vitals: Temp Pulse Resp BP Pulse Ox 98.4 F 104 H 18 130/68 H 93 10/25/20 19:52 10/25/20 19:52 10/25/20 19:52 10/25/20 19:52 10/25/20 19:52 - Respiratory Respiratory status: No respiratory distress Breath sounds: Nonproductive cough Course - Vital Signs Vital signs: Temp Pulse Resp BP Pulse Ox 98.4 F 104 H 18 130/68 H 93 10/25/20 19:52 10/25/20 19:52 10/25/20 19:52 10/25/20 19:52 10/25/20 19:52 Doctor's Discharge - Discharge Referrals: VIKAS BEGUM DO [Primary Care Provider] - Follow up as needed
[2020-10-25 20:56] LABS: ABSOLUTE LYMPHOCYTES (AUTO) 0.9 10^3/uL (0.5-4.7); ABSOLUTE MONOCYTES (AUTO) 0.5 10^3/uL (0.1-1.4); ABSOLUTE NEUT (AUTO) 4.4 10^3/uL (1.7-8.2); BASOPHILS % (AUTO) 0.4 % (0-2); EOSINOPHILS % (AUTO) 0.3 % (0-6); HEMOGLOBIN 14.4 g/dL (12.0-15.5); LYMPHOCYTES % (AUTO) 14.9 % (13-45); MEAN CORPUSCULAR HEMOGLOBIN 27.8 pg (27.0-33.4); MEAN CORPUSCULAR HGB CONC 35.2 g/dL (32.0-36.0); MEAN CORPUSCULAR VOLUME 79 fl (80-97); MONOCYTES % (AUTO) 8.2 % (3-13); PLATELET COUNT 112 10^3/uL (150-450); RED BLOOD COUNT 5.19 10^6/uL (3.72-5.28); RED CELL DISTRIBUTION WIDTH 15.7 % (11.5-14.0); SEGMENTED NEUTROPHILS % (AUTO) 76.2 % (42-78); TOTAL CELLS COUNTED % (AUTO) 100 %; WHITE BLOOD COUNT 5.8 10^3/uL (4.0-10.5)
[2020-10-25 21:21] LABS: ANION GAP 11 (5-19); BLOOD UREA NITROGEN 19 mg/dL (7-20); CALCIUM 9.6 mg/dL (8.4-10.2); CARBON DIOXIDE 25 mmol/L (22-30); CHLORIDE 100 mmol/L (98-107); GLUCOSE 146 mg/dL (75-110); POTASSIUM 3.2 mmol/L (3.6-5.0)
[2020-10-25 21:28] LABS: APPEARANCE,URINE SLIGHTLY-CLOUDY; BILIRUBIN,URINE NEGATIVE (NEGATIVE); COLOR,URINE DARK YELLOW; GLUCOSE, URINE NEGATIVE (NEGATIVE); KETONES,URINE NEGATIVE (NEGATIVE); LEUKOCYTE ESTERASE,URINE TRACE (NEGATIVE); NITRITE,URINE NEGATIVE (NEGATIVE); PROTEIN,URINE 30 mg/dL (NEGATIVE); URINE SPECIFIC GRAVITY 1.029
--- NOTE | 2020-10-25 21:44 | RADIOLOGY REPORT (SQ) ---
AP Portable chest: 10/25/2020 8:42 PM [employer] History: 79-year old patient with cough. Comparison: Chest radiograph performed 10/06/2019. Findings: The cardiomediastinal silhouette is normal in size. No pneumothorax is seen. No acute airspace opacities are seen. No discrete pleural effusion is apparent. Impression: No acute airspace opacities are seen.
[2020-10-26] MEDS ORDERED: AZITHROMYCIN 250 MG TABLET PO ONE (00:44)
[2020-10-26] MEDS ORDERED: DEXAMETHASONE 4 MG TABLET PO ONE (00:44)
--- NOTE | 2020-10-26 00:44 | ER Document Report ---
ED Flu Like - General Chief Complaint: Flu Symptoms Stated Complaint: HEADACHE/COUGH/FEVER/CHILLS Time Seen by Provider: 10/25/20 19:50 Primary Care Provider: VIKAS BEGUM DO [Primary Care Provider] - Follow up as needed Mode of Arrival: Ambulatory Information source: Patient Notes: ED Medical Screen (Sissy holden) - General Chief Complaint: Headache <24 hrs old Stated Complaint: HEADACHE/COUGH/FEVER/CHILLS Time Seen by Provider: 10/25/20 19:50 Primary Care Provider: VIKAS BEGUM DO [Primary Care Provider] - Follow up as needed Notes: Patient presents with cough for the past 2 weeks. Patient reports fever at home and generalized weakness. Patient denies any nausea vomiting or diarrhea. Patient denies shortness of breath or chest pain. Patient feels that her symptoms worsened yesterday. Patient does have a history of hypertension, dyslipidemia and GERD and diabetes. I have greeted and performed a rapid initial assessment of this patient. A comprehensive ED assessment and evaluation of the patient, analysis of test results and completion of the medical decision making process will be conducted by additional ED providers. TRAVEL OUTSIDE OF THE [place] IN LAST 30 DAYS: No - Related Data Allergies/Adverse Reactions: midazolam HCl [From Versed] Allergy (Unknown, Verified 10/14/20 07:36) hydrocodone [Hydrocodone] Allergy (Verified 10/14/20 07:36) Pruritis nitrofurantoin [From Macrobid] Allergy (Verified 10/14/20 07:36) Pruritis nitrofurantoin macrocrystalline [From Macrobid] Allergy (Verified 10/14/20 07:36) Pruritis ketorolac [From Toradol] Adverse Reaction (Verified 10/14/20 07:36) Sulfa (Sulfonamide Antibiotics) Adverse Reaction (Verified 10/14/20 07:36) Anxiety tramadol Adverse Reaction (Verified 10/14/20 07:36) Past Medical History - Past Medical History Cardiac Medical History: Reports: Hx Hypercholesterolemia, Hx Hypertension Denies: Hx Coronary Artery Disease, Hx Heart Attack Pulmonary Medical History: Denies: Hx Asthma, Hx Bronchitis, Hx COPD, Hx Pneumonia Neurological Medical History: Reports: Hx Cerebrovascular Accident - SHE DOES NOT REMEMBER IT, HAS BEEN TOLD SHE HAS HAD A CVA. Denies: Hx Seizures Endocrine Medical History: Reports: Hx Diabetes Mellitus Type 2 - borderline. Denies: Hx Diabetes Mellitus Type 1, Hx Hyperthyroidism, Hx Hypothyroidism Renal/ Medical History: Denies: Hx Peritoneal Dialysis GI Medical History: Reports: Hx Gastroesophageal Reflux Disease. Denies: Hx Cirrhosis, Hx Crohn's Disease, Hx Hepatitis, Hx Hiatal Hernia, Hx Ulcer, Hx Ulcerative Colitis Musculoskeltal Medical History: Reports Hx Arthritis - Generalized osteoarthritis, Denies Hx Fibromyalgia, Denies Hx Gout Skin Medical History: Denies Hx Eczema, Denies Hx Psoriasis Psychiatric Medical History: Reports: Hx Depression Infectious Medical History: Denies: Hx Hepatitis Past Surgical History: Reports: Hx Adenoidectomy, Hx Appendectomy, Hx Cholecystectomy, Hx Hysterectomy, Hx Thyroid Surgery, Hx Tonsillectomy, Other - Bilateral cataract surgery, bilateral breast reductions. Denies: Hx Mastectomy, Hx Open Heart Surgery, Hx Pacemaker MY NOTES 79-year-old female arrives with chief complaint of having 2 weeks of nonproductive cough. Patient feels this cold is sitting inside her chest. She denies any rhinorrhea sore throat cephalgia nuchal rigidity skin rash diarrhea dysuria black tarry stools or chills or fever. Her chest x-ray today is within normal limits as are most of her labs except for a 3.2 potassium. TRAVEL OUTSIDE OF THE [place] IN LAST 30 DAYS: No - Related Data Allergies/Adverse Reactions: midazolam HCl [From Versed] Allergy (Unknown, Verified 10/14/20 07:36) hydrocodone [Hydrocodone] Allergy (Verified 10/14/20 07:36) Pruritis nitrofurantoin [From Macrobid] Allergy (Verified 10/14/20 07:36) Pruritis nitrofurantoin macrocrystalline [From Macrobid] Allergy (Verified 10/14/20 07:36) Pruritis ketorolac [From Toradol] Adverse Reaction (Verified 10/14/20 07:36) Sulfa (Sulfonamide Antibiotics) Adverse Reaction (Verified 10/14/20 07:36) Anxiety tramadol Adverse Reaction (Verified 10/14/20 07:36) Home Medications: metropolol,levothryxine, Past Medical History - General Information source: Patient - Social History Smoking Status: Never Smoker Cigarette use (# per day): No Chew tobacco use (# tins/day): No Smoking Education Provided: No Frequency of alcohol use: None Lives with: Family - in room 15 with similar symptoms Family History: Reviewed & Not Pertinent, CAD, Hypertension, Malignancy. denies: DM Patient has suicidal ideation: No Patient has homicidal ideation: No - Past Medical History Cardiac Medical History: Reports: Hx Hypercholesterolemia, Hx Hypertension Denies: Hx Coronary Artery Disease, Hx Heart Attack Pulmonary Medical History: Denies: Hx Asthma, Hx Bronchitis, Hx COPD, Hx Pneumonia Neurological Medical History: Reports: Hx Cerebrovascular Accident - SHE DOES NOT REMEMBER IT, HAS BEEN TOLD SHE HAS HAD A CVA. Denies: Hx Seizures Endocrine Medical History: Reports: Hx Diabetes Mellitus Type 2 - borderline. Denies: Hx Diabetes Mellitus Type 1, Hx Hyperthyroidism, Hx Hypothyroidism Renal/ Medical History: Denies: Hx Peritoneal Dialysis GI Medical History: Reports: Hx Gastroesophageal Reflux Disease. Denies: Hx Cirrhosis, Hx Crohn's Disease, Hx Hepatitis, Hx Hiatal Hernia, Hx Ulcer, Hx Ulcerative Colitis Musculoskeletal Medical History: Reports Hx Arthritis - Generalized oste oarthritis, Denies Hx Fibromyalgia, Denies Hx Gout Skin Medical History: Denies Hx Eczema, Denies Hx Psoriasis Psychiatric Medical History: Reports: Hx Depression Infectious Medical History: Denies: Hx Hepatitis Past Surgical History: Reports: Hx Adenoidectomy, Hx Appendectomy, Hx Cholecystectomy, Hx Hysterectomy, Hx Thyroid Surgery, Hx Tonsillectomy, Other - Bilateral cataract surgery, bilateral breast reductions. Denies: Hx Mastectomy, Hx Open Heart Surgery, Hx Pacemaker - Immunizations Hx Diphtheria, Pertussis, Tetanus Vaccination: - UNSURE Hx Pneumococcal Vaccination: 10/24/16 Review of Systems - Review of Systems Constitutional: No symptoms reported, See HPI, Weakness, Recent illness EENT: No symptoms reported Cardiovascular: No symptoms reported Respiratory: No symptoms reported Gastrointestinal: No symptoms reported Genitourinary: No symptoms reported Female Genitourinary: No symptoms reported Musculoskeletal: No symptoms reported Skin: No symptoms reported Hematologic/Lymphatic: No symptoms reported Neurological/Psychological: No symptoms reported Physical Exam - Vital signs Vitals: Temp Pulse Resp BP Pulse Ox 98.4 F 104 H 18 130/68 H 93 10/25/20 19:52 10/25/20 19:52 10/25/20 19:52 10/25/20 19:52 10/25/20 19:52 Interpretation: Tachycardic - General General appearance: Appears well, Alert - HEENT Head: Normocephalic, Atraumatic Eyes: Normal Pupils: PERRL - Respiratory Respiratory status: No respiratory distress Chest status: Nontender Breath sounds: Decreased air movement Chest palpation: Normal - Cardiovascular Rhythm: Regular Heart sounds: Normal auscultation Murmur: No - Abdominal Inspection: Normal Distension: No distension Bowel sounds: Normal Tenderness: Nontender Organomegaly: No organomegaly - Rectal Hemorrhoids: Other - deferred - Genitourinary Bimanuel exam: Other - deferred - Back Back: Normal, Nontender - Extremities General upper extremity: Normal inspection, Nontender, Normal color, Normal ROM, Normal temperature General lower extremity: Normal inspection, Nontender, Normal color, Normal ROM, Normal temperature, Normal weight bearing. No: Pascale's sign - Neurological Neuro grossly intact: Yes Cognition: Normal Orientation: AAOx4 Kersey Coma Scale Eye Opening: Spontaneous Allen Coma Scale Verbal: Oriented Allen Coma Scale Motor: Obeys Commands Kersey Coma Scale Total: 15 Speech: Normal Motor strength normal: LUE, RUE, LLE, RLE Sensory: Normal - Psychological Associated symptoms: Normal affect, Normal mood - Skin Skin Temperature: Warm Skin Moisture: Dry Skin Color: Normal Course - Vital Signs Vital signs: Temp Pulse Resp BP Pulse Ox 97.4 F 88 18 130/68 H 93 10/25/20 21:30 10/25/20 21:30 10/25/20 21:30 10/25/20 19:52 10/25/20 21:30 - Laboratory Results Result Diagrams: 10/25/20 20:36 10/25/20 20:36 Laboratory Results Interpreted: 10/25/20 10/25/20 10/25/20 20:36 20:36 20:36 MCV 79 L RDW 15.7 H Plt Count 112 L Sodium 136.2 L Potassium 3.2 L Est GFR (MDRD) Non-Af 51 L Glucose 146 H Urine Protein 30 H Urine Urobilinogen 4.0 H Ur Leukocyte Esterase TRACE H Critical Laboratory Results Reviewed: Yes Attending or Supervising Physician who Reviewed Labs: JOSE NGUYEN JR - Radiology Results Critical Radiology Results Reviewed: No Critical Results Attending or Supervising Physician who Reviewed Radiology: JOSE NGUYEN JR Discharge - Discharge Clinical Impression: COVID-19 virus RNA test result unknown, Hypokalemia URI (upper respiratory infection) Qualifiers: URI type: unspecified URI Qualified Code(s): Brittanie06.9 - Acute upper respiratory infection, unspecified Condition: Stable Disposition: HOME, SELF-CARE Instructions: COVID-19 Guidance for Persons Under Investigation Additional Instructions: Follow-up with personal doctor this week take medications as directed encourage fluids. Take vitamin D3 daily as well as melatonin at nighttime. Also take Pepcid [id number] twice a day for 1 week. I advised you to eat a banana a day to help with your potassium that was low today. Prescriptions: Dexamethasone [Decadron 4 Mg Tablet] 4 mg PO DAILY #5 tablet Azithromycin [Zithromax 250 mg Tablet] 250 mg PO ASDIR PRN #6 tablet PRN Reason: Referrals: VIKAS BEGUM DO [Primary Care Provider] - Follow up as needed
[2020-10-26 01:11] VITALS: BP 151/68
--- NOTE | 2020-10-26 09:45 | EKG REPORT ---
SEVERITY:- ABNORMAL ECG - SINUS RHYTHM VENTRICULAR PREMATURE COMPLEX LEFT BUNDLE BRANCH BLOCK : Confirmed by: Jeremy Glass MD 26-Oct-2020 09:44:02
== END 2020-10-26 01:18 | disposition home or self-care (01) ==
LOC: ER 19:37
DX: U07.1 COVID-19 (principal); J06.9 Acute upper respiratory infection, unspecified; E87.6 Hypokalemia; R05 Cough; R53.1 Weakness; I10 Essential (primary) hypertension; Z79.899 Other long term (current) drug therapy; Z88.8 Allergy status to other drugs, medicaments and biological substances; Z88.6 Allergy status to analgesic agent; Z88.5 Allergy status to narcotic agent; Z88.1 Allergy status to other antibiotic agents
CPT/HCPCS: 93005; 99285; 36415; 85025; 80048; 81001; 71045; 93010; U0003; A9270 ×2; C9803; 87635; J8540

== ENCOUNTER 2020-11-08 16:52 | Emergency (ER) | payer MEDICARE ==
[2020-11-08 17:39] LABS: APPEARANCE,URINE CLOUDY; BILIRUBIN,URINE NEGATIVE (NEGATIVE); COLOR,URINE YELLOW; GLUCOSE, URINE NEGATIVE (NEGATIVE); KETONES,URINE NEGATIVE (NEGATIVE); LEUKOCYTE ESTERASE,URINE LARGE (NEGATIVE); NITRITE,URINE NEGATIVE (NEGATIVE); PROTEIN,URINE NEGATIVE (NEGATIVE); URINE SPECIFIC GRAVITY 1.006; UROBILINOGEN,URINE NEGATIVE mg/dL (<2.0)
[2020-11-08] MEDS ORDERED: CEPHALEXIN 500 MG CAPSULE PO ONE (18:35)
--- NOTE | 2020-11-08 18:41 | ER Document Report ---
ED General - General Chief Complaint: Urinary Frequency Stated Complaint: URINARY PROBLEM Time Seen by Provider: 11/08/20 17:53 Primary Care Provider: VIKAS RUANO DO [Primary Care Provider] - Follow up as needed TRAVEL OUTSIDE OF THE [place] IN LAST 30 DAYS: No - HPI Notes: Chief complaint: Burning with urination and urinary frequency History of present illness: 79-year-old female former cigarette smoker with history of hypertension, diabetes mellitus type 2, COPD and chronic/recurrent UTIs followed by Dr. Ruano now seen for evaluation of lower urinary symptoms present for about 1 week. She has had a cough at home which is nonproductive and this is actually improving now. She had a previous negative Covid test performed by her doctor. She says she is eating and drinking normally. She complains of some intermittent lower back pain. No fever or chills. She is allergic to sulfa drugs. - Related Data Allergies/Adverse Reactions: midazolam HCl [From Versed] Allergy (Unknown, Verified 10/14/20 07:36) hydrocodone [Hydrocodone] Allergy (Verified 10/14/20 07:36) Pruritis nitrofurantoin [From Macrobid] Allergy (Verified 10/14/20 07:36) Pruritis nitrofurantoin macrocrystalline [From Macrobid] Allergy (Verified 10/14/20 07:36) Pruritis ketorolac [From Toradol] Adverse Reaction (Verified 10/14/20 07:36) Sulfa (Sulfonamide Antibiotics) Adverse Reaction (Verified 10/14/20 07:36) Anxiety tramadol Adverse Reaction (Verified 10/14/20 07:36) Home Medications: Gabapentin, Levothyroxine, Esomeprazole,ZYrtec Metoprolol Past Medical History - General Information source: Patient, Relative, [facility] Records - Social History Smoking Status: Former Smoker Frequency of alcohol use: None Drug Abuse: None Family History: Reviewed & Not Pertinent, CAD, Hypertension, Malignancy. denies: DM Patient has homicidal ideation: No - Past Medical History Cardiac Medical History: Reports: Hx Hypercholesterolemia, Hx Hypertension Denies: Hx Coronary Artery Disease, Hx Heart Attack Pulmonary Medical History: Reports: Hx COPD Denies: Hx Asthma, Hx Bronchitis, Hx Pneumonia Neurological Medical History: Reports: Hx Cerebrovascular Accident - SHE DOES NOT REMEMBER IT, HAS BEEN TOLD SHE HAS HAD A CVA. Denies: Hx Seizures Endocrine Medical History: Reports: Hx Diabetes Mellitus Type 2 - borderline, Hx Hypothyroidism. Denies: Hx Diabetes Mellitus Type 1, Hx Hyperthyroidism Renal/ Medical History: Reports: Other - Recurrent UTIs. Denies: Hx Peritoneal Dialysis GI Medical History: Reports: Hx Gastroesophageal Reflux Disease. Denies: Hx Cirrhosis, Hx Crohn's Disease, Hx Hepatitis, Hx Hiatal Hernia, Hx Ulcer, Hx Ulcerative Colitis Musculoskeletal Medical History: Reports Hx Arthritis - Generalized osteoarthritis, Denies Hx Fibromyalgia, Denies Hx Gout Skin Medical History: Denies Hx Eczema, Denies Hx Psoriasis Psychiatric Medical History: Reports: Hx Depression Infectious Medical History: Denies: Hx Hepatitis Past Surgical History: Reports: Hx Adenoidectomy, Hx Appendectomy, Hx Cholecystectomy, Hx Hysterectomy, Hx Thyroid Surgery, Hx Tonsillectomy, Other - Bilateral cataract surgery, bilateral breast reductions. Denies: Hx Mastectomy, Hx Open Heart Surgery, Hx Pacemaker - Immunizations Hx Diphtheria, Pertussis, Tetanus Vaccination: - UNSURE Hx Pneumococcal Vaccination: 10/24/16 Review of Systems - Review of Systems Notes: Constitutional: Negative for fever. HENT: Negative for sore throat. Eyes: Negative for visual changes. Cardiovascular: Negative for chest pain. Respiratory: As per HPI. Gastrointestinal: Negative for abdominal pain, vomiting or diarrhea. Genitourinary: As per HPI Musculoskeletal: Negative for back pain. Skin: Negative for rash. Neurological: Negative for headaches, weakness or numbness. 10 point ROS negative except as marked above and in HPI. Physical Exam - Vital signs Vitals: Temp 98.3 F 11/08/20 16:52 - Notes Notes: GENERAL: Elderly female appearing in no acute distress. SKIN: Good turgor no rashes. HEAD: Normocephalic atraumatic. EYES: PERRLA. EOMI. Conjunctivae and sclerae clear. EARS: CANALS AND TMS CLEAR. NOSE: CLEAR. MOUTH: Moist mucosa. Good dentition. No stridor or edema. No drooling. NECK: Supple. No masses or thyromegaly. No adenopathy. Carotids 2+ without bruits. No JVD. BACK: Symmetrical without tenderness. CHEST: Slight dry cough. Respirations unlabored. Breath sounds clear and symmetrical. HEART: Regular rhythm. No murmur gallop or rub. ABDOMEN: Soft nontender without masses, organomegaly or rebound. Bowel sounds normally active. No bruits. GENITALIA: Deferred. EXTREMITIES: No edema. No calf tenderness. Cap refill less than 1.5 seconds. Dorsalis pedis and posterior tibial pulses 3+ and symmetrical. NEUROLOGICAL: GCS 15. Alert and oriented x3. Normal gait. Fluent speech. Cranial nerves II through XII intact. Sensorimotor and cerebellar normal. Normal tone. PSYCHIATRIC: Appropriate affect. Course - Re-evaluation Re-evalutation: 11/08/20 18:40 Patient is afebrile and hemodynamically stable. Oxygenation is normal on room air. Lungs are clear to auscultation. Her urinalysis shows significant pyuria with positive nitrite/leukocyte esterase. Urine has been cultured. I have given the patient some oral Keflex. I have spoken with the patient's grandson Geoffrey by telephone and he is comfortable with outpatient treatment with antibiotics and follow-up with her PMD. Findings, clinical impression and plan of treatment have been discussed with patient/family. Understanding of current findings and recommendations has been acknowledged by them and there is agreement regarding disposition and follow-up. - Vital Signs Vital signs: Temp Pulse Resp BP Pulse Ox 98.3 F 11/08/20 16:52 - Laboratory Results Laboratory Results Interpreted: 11/08/20 17:15 Ur Leukocyte Esterase LARGE H Critical Laboratory Results Reviewed: Yes Attending or Supervising Physician who Reviewed Labs: VIKAS DUFFY - Radiology Results Critical Radiology Results Reviewed: No Critical Results Discharge - Discharge Clinical Impression: Urinary tract infection Condition: Stable Disposition: HOME, SELF-CARE Additional Instructions: Urinary Tract Infection Your evaluation indicates that you have a urinary tract infection. This is due to germs growing in the bladder. This is a common problem. This infection usually responds quickly to antibiotics. Your antibiotic should be taken exactly as prescribed. Drink plenty of fluids -- three to four quarts a day. Occasionally, a bladder anesthetic will be prescribed to help stop the feeling of urgency until the antibiotic has a chance to clear the infection. This may cause your urine to be dark orange. Certain urine infections require a culture. If the doctor obtained a culture, the results will be back in two days. You should call to see if a change in treatment is needed. A repeat urinalysis after you finish treatment is often recommended. The physician will let you know if further testing is required. Call the doctor if you develop fever, chills, flank pain, inability to urinate, or blood in the urine. Take prescribed antibiotic medication as directed. See your doctor for recheck of your urinalysis within a week's time after you complete the antibiotics. Return here as needed for new or worsening symptoms: Pain that is worsening or unimproved Uncontrolled vomiting High fever or shaking chills Overall worsening Prescriptions: Cephalexin Monohydrate [Keflex 500 mg Capsule] 500 mg PO Q6H 10 Days #40 capsule Referrals: VIKAS RUANO DO [Primary Care Provider] - Follow up as needed
[2020-11-08 20:08] VITALS: BP 115/83
== END 2020-11-08 20:10 | disposition home or self-care (01) ==
LOC: ER 16:52
DX: N39.0 Urinary tract infection, site not specified (principal); M54.5 Low back pain; E11.9 Type 2 diabetes mellitus without complications; I10 Essential (primary) hypertension; J44.9 Chronic obstructive pulmonary disease, unspecified; E03.9 Hypothyroidism, unspecified; K21.9 Gastro-esophageal reflux disease without esophagitis; Z79.899 Other long term (current) drug therapy; Z87.891 Personal history of nicotine dependence; Z88.2 Allergy status to sulfonamides; Z88.8 Allergy status to other drugs, medicaments and biological substances; Z88.6 Allergy status to analgesic agent; Z88.5 Allergy status to narcotic agent; Z88.1 Allergy status to other antibiotic agents
CPT/HCPCS: 99283; 87086; 87088; 81001; 87186; A9270